=== PATIENT | male | born 1935 | race Caucasian/White ===

== ENCOUNTER 2017-06-16 19:09 | Emergency (ER) | payer MEDICARE | END 2017-06-16 21:15 | disposition home or self-care (01) | LOC: SCSER 19:09 | DX: K59.00 Constipation, unspecified (principal); E11.9 Type 2 diabetes mellitus without complications; I10 Essential (primary) hypertension | CPT/HCPCS: 99283 ==

== ENCOUNTER 2018-08-05 05:15 | Emergency (ER) | payer MEDICARE, OTHER ==
[2018-08-05] MEDS ORDERED: Acetaminophen/Codeine 30-300mg Tablet ONE (05:55)
== END 2018-08-05 06:03 | disposition home or self-care (01) ==
LOC: SCSER 05:15
DX: R10.32 Left lower quadrant pain (principal); I10 Essential (primary) hypertension; E11.9 Type 2 diabetes mellitus without complications; Z79.899 Other long term (current) drug therapy; Z79.84 Long term (current) use of oral hypoglycemic drugs
CPT/HCPCS: 99283

== ENCOUNTER 2018-08-18 11:31 | Outpatient (CLI) | payer MEDICARE ==
[2018-08-18 13:29] LABS: #Basophils 0.1 thou/uL (0.0-0.2); #Eosinphils 2.6 thou/uL (0.0-0.7); #Lymphocytes 2.9 thou/uL (1.20-3.40); #Monocytes 0.7 thou/uL (0.11-0.59); #Neutrophils 4.5 thou/uL (1.40-6.50); %Lymphocytes 26.9 % (21.0-51.0); %Monocytes 6.6 % (0.0-10.0); %Neutrophils 41.6 % (42.0-75.0); Mean Corpuscular Hemoglobin 30.5 pg (27.0-31.0); Mean Corpuscular Volume 92.3 fL (78.0-98.0); Mean Platelet Volume 8.7 fL (7.4-10.4); Platelet Count 251 thou/uL (130-400); RBC Distribution Width 12.6 % (11.5-14.5); Red Blood Cell (RBC) Count 4.92 mill/uL (4.70-6.10); White Blood Cell (WBC) Count 10.7 thou/uL (4.8-10.8)
[2018-08-18 14:07] LABS: ALT (SGPT) 33 U/L (8-55); AST (SGOT) 21 U/L (5-34); Albumin 4.1 g/dL (3.4-4.8); Alkaline Phosphatase 59 U/L (40-150); Anion Gap 14 mmol/L (10-20); BUN (Urea Nitrogen) 25 mg/dL (8.4-25.7); Bilirubin, Total 0.4 mg/dL (0.2-1.2); Calc. Creatinine Clearance 0 mL/min (70-130); Calcium 9.6 mg/dL (7.8-10.44); Carbon Dioxide 27 mmol/L (23-31); Chloride 103 mmol/L (98-107); Estimated GFR-MDRD 54; Glucose 121 mg/dL (83-110); Potassium 4.2 mmol/L (3.5-5.1); Protein, Total 7.1 g/dL (5.8-8.1); Sodium 140 mmol/L (136-145)
--- NOTE | 2018-08-18 16:59 | EKG ---
Test Reason : Blood Pressure : / mmHG Vent. Rate : 065 BPM Atrial Rate : 065 BPM P-R Int : 190 ms QRS Dur : 104 ms QT Int : 430 ms P-R-T Axes : 043 -33 011 degrees QTc Int : 447 ms Normal sinus rhythm Left axis deviation Voltage criteria for left ventricular hypertrophy Abnormal ECG Confirmed by DR. Fariha LUNA ([id number]) on 08/18/2018 4:58:50 PM Referred By: BREEZY Confirmed By:DR. Fariha LUNA
== END 2018-08-18 11:32 | disposition home or self-care (01) ==
LOC: LABBT 11:31
PROVIDERS: ATTEND Surgery
DX: Z01.818 Encounter for other preprocedural examination (principal); K40.90 Unilateral inguinal hernia, without obstruction or gangrene, not specified as recurrent
CPT/HCPCS: 80053; 85025; 93005; 93010

== ENCOUNTER → 2018-08-21 | Day surgery (SDC) | payer MEDICARE ==
[2018-08-18 12:48] VITALS: BMI 29.6
[~2018-08-21] MED LIST: Bupivacaine HCl 0.5%/Epinephrine 1:200,000/PF 30 ml Vial ONE; CEFAZOLIN 2 GM/50 ML BAG ONE; Dexamethasone 20 MG/5 ML VIAL ONE; Fentanyl 250 MCG/5 ML VIAL ONE; Glycopyrrolate 0.2 MG/ML 5 ML SYRINGE ONE; HYDROcodone/Acetaminophen 5/325 mg Tablet ONE; Lidocaine 1% PF 5 ML VIAL ONE; Lidocaine 2% 11 ML SYR ONE; Ondansetron PF 4 MG/2 ML Vial ONE; PROPOFOL 200 MG/20 ML VIAL ONE
--- NOTE | 2018-08-21 12:22 | OP ---
DATE OF PROCEDURE: 08/21/2018 PREOPERATIVE DIAGNOSIS: Left inguinal hernia. PROCEDURES PERFORMED: Left inguinal hernia repair with mesh. INDICATIONS: An 83-year-old male with a large painful groin bulge, found to have a hernia. FINDINGS: He had a large indirect left inguinal hernia. DESCRIPTION OF PROCEDURE: After informed consent was obtained, the patient was taken to the operating room, given general mask anesthesia and placed in supine position. His groin was prepped and draped in usual fashion. Local anesthesia was infiltrated subcutaneously and deep. Transverse inguinal incision was performed. Subcu divided sharply. The fascia external oblique was incised in direction of its fibers through the external ring. Spermatic cord was isolated with a Sherwin drain. Very large spermatic cord due to the hernia. I was able to get it reduced and then the hernia sac from surrounding cord structures down to the internal ring. This was reduced. Reduction was maintained utilizing a PHS hernia system. The posterior layer placed in the preperitoneal space, anterior was laid out, sutured to the pubic tubercle medially, tucked under the external oblique fascia laterally. A notch was cut out for the spermatic cord. Hemostasis assured. The cord placed anatomically. External oblique fascia closed over the cord with a running 3-0 Vicryl. Leana was closed with interrupted 3-0 Vicryl and the skin was closed with a running subcuticular 4-0 Rapide. Steri-Strips applied. Sterile bandage applied. The patient tolerated the procedure well, transferred to Recovery in good condition. Sponge and needle count verified correct x2. Job ID: [id number]
== END ==
LOC: SDC 07:11
PROVIDERS: ATTEND Surgery
PROC: 0YU60JZ Supplement Left Inguinal Region with Synthetic Substitute, Open Approach (ICD-10-PCS; principal; 2018-08-21)
DX: K40.90 Unilateral inguinal hernia, without obstruction or gangrene, not specified as recurrent (principal); M19.90 Unspecified osteoarthritis, unspecified site; E11.9 Type 2 diabetes mellitus without complications; I10 Essential (primary) hypertension; Z87.891 Personal history of nicotine dependence; Z79.84 Long term (current) use of oral hypoglycemic drugs; Z79.899 Other long term (current) drug therapy
CPT/HCPCS: 49505; C1781; J0670; J1100; J2001; J2405; J2704; J3010

== ENCOUNTER 2019-02-26 15:29 | Emergency (ER) | payer MEDICARE ==
[2019-02-26] MEDS ORDERED: Adacel (T-DAP) 0.5 ML SYRINGE ONE (16:15)
[2019-02-26] MEDS ORDERED: Bupivacaine 0.5% 10 ML VIAL ONE (16:15)
[2019-02-26] MEDS ORDERED: Lidocaine 1% 20 ML MDV ONE (16:15)
--- NOTE | 2019-02-26 16:19 | RAD ---
RIGHT HAND THREE VIEW: 02/26/19 HISTORY: Injury. Mechanical fall. COMPARISON: None. FINDINGS: Ring finger proximal interphalangeal joint there is dorsal displacement with overriding approximately 8 mm. Mild interphalangeal joint space narrowing of the other digits. Moderate third finger, middle finger, metacarpophalangeal join space narrowing. Radiocarpal joint is normal. IMPRESSION: Dorsal displacement ring finger proximal interphalangeal with 8 mm overriding. POS: CET
[2019-02-26] MEDS ORDERED: Bacitracin 1 PK ONE (18:06)
--- NOTE | 2019-02-26 18:52 | RAD ---
Radiograph right fourth digit 3 views: DATE: 02/26/2019 Time: 6:25 PM Streaky: Status post reduction of dislocation of right fourth digit in 84-year-old male COMPARISON: Right hand radiograph of 02/26/2019 at 4:00 PM FINDINGS: The fourth PIP is now located. There is a volar splint. No fracture is identified. IMPRESSION: Successful reduction of the acute, traumatic dislocation of fourth proximal interphalangeal joint of right hand.
== END 2019-02-26 19:00 | disposition home or self-care (01) ==
LOC: SCSER 15:29
DX: S63.284A Dislocation of proximal interphalangeal joint of right ring finger, initial encounter (principal); S61.212A Laceration without foreign body of right middle finger without damage to nail, initial encounter; I10 Essential (primary) hypertension; E11.9 Type 2 diabetes mellitus without complications; Z79.84 Long term (current) use of oral hypoglycemic drugs; Z79.899 Other long term (current) drug therapy; W19.XXXA Unspecified fall, initial encounter
CPT/HCPCS: 12002; 26770; 90471; 90715; J2001; J3490

== ENCOUNTER 2019-06-13 09:58 | Inpatient (IN) | payer MEDICARE ==
[2019-06-13 10:57] LABS: #Basophils 0.1 thou/uL (0.0-0.2); #Eosinphils 2.3 thou/uL (0.0-0.7); #Lymphocytes 4.8 thou/uL (1.20-3.40); #Monocytes 0.8 thou/uL (0.11-0.59); #Neutrophils 7.9 thou/uL (1.40-6.50); %Basophils 0.5 % (0.0-1.0); %Eosinophils 14.3 % (0.0-10.0); %Lymphocytes 30.3 % (21.0-51.0); %Monocytes 5.3 % (0.0-10.0); %Neutrophils 49.7 % (42.0-75.0); Hemoglobin 15.2 g/dL (14.0-18.0); Mean Corpuscular HGB CONC 33.8 g/dL (32.0-36.0); Mean Corpuscular Hemoglobin 30.1 pg (27.0-31.0); Platelet Count 304 thou/uL (130-400); RBC Distribution Width 12.2 % (11.5-14.5); Red Blood Cell (RBC) Count 5.05 mill/uL (4.70-6.10); White Blood Cell (WBC) Count 15.9 thou/uL (4.8-10.8)
--- NOTE | 2019-06-13 10:58 | CT ---
CT head without contrast: Multiple axial tomograms obtained through the head without IV enhancement. INDICATIONS: Near syncope. COMPARISON: None FINDINGS: Ventricles have normal size and position. Mild to moderate chronic ischemic white matter change. No evidence of intracranial mass, hemorrhage, edema, or infarct. Visualized sinuses and mastoids appear clear. Bony calvarium appears unremarkable. IMPRESSION: No acute finding
[2019-06-13] MEDS ORDERED: Ondansetron PF 4 MG/2 ML Vial ONE ×2 (11:04→14:06)
[2019-06-13 11:10] LABS: Bilirubin Negative (Negative); Blood, Urine Trace (Negative); Clarity Clear (Clear); Glucose, Urine (Dipstick) 300 mg/dL (Negative); Leukocyte Negative Leu/uL (Negative); Nitrite Negative (Negative); Protein, Urine (Dipstick) 300 mg/dL (Neg-Trace); Squamous Epithelial None Seen HPF (0-3); Urobilinogen Normal mg/dL (Less than 2)
--- NOTE | 2019-06-13 11:10 | RAD ---
Portable chest: HISTORY: Weak. Lightheaded. COMPARISON: none FINDINGS: Lung philippe are clear. Heart and mediastinum appear unremarkable. Vascularity is normal. Visualized osseous structures unremarkable. IMPRESSION: No acute finding
[2019-06-13 11:20] LABS: ALT (SGPT) 42 U/L (8-55); AST (SGOT) 29 U/L (5-34); Albumin 4.4 g/dL (3.4-4.8); Alkaline Phosphatase 69 U/L (40-110); Anion Gap 15 mmol/L (10-20); BUN (Urea Nitrogen) 26 mg/dL (8.4-25.7); Bilirubin, Total 0.4 mg/dL (0.2-1.2); Calc. Creatinine Clearance 0 mL/min (70-130); Calcium 9.8 mg/dL (7.8-10.44); Carbon Dioxide 27 mmol/L (23-31); Chloride 98 mmol/L (98-107); Estimated GFR-MDRD 45; Globulin 3.7 g/dL (2.4-3.5); Glucose 279 mg/dL (83-110); Potassium 3.4 mmol/L (3.5-5.1); Protein, Total 8.1 g/dL (5.8-8.1); Sodium 137 mmol/L (136-145)
[2019-06-13 11:23] LABS: Amphetamine Not Detected (NotDetected); Barbiturates Screen Not Detected (NotDetected); Benzodiazepine Screen Not Detected (NotDetected); Cocaine Metabolite Screen Not Detected (NotDetected); Medtox Control Line Valid? VALID (VALID); Medtox Reader # READER 1; Methadone Not Detected (NotDetected); Methamphetamine Not Detected (NotDetected); Opiate Screen Not Detected (NotDetected); Oxycodone Screen Not Detected (NotDetected); Phencyclidine (PCP) Not Detected (NotDetected); THC/Cannabinoid Screen Not Detected (NotDetected); Tricyclic Screen Not Detected (NotDetected)
[2019-06-13 11:26] LABS: Bacteria/HPF None Seen HPF (None Seen)
[2019-06-13] MEDS ORDERED: Meclizine HCl 25 MG TAB PO PRN (12:44)
[2019-06-13] MEDS ORDERED: HYDROcodone/Acetaminophen 7.5/325 mg Tablet PO PRN (12:45)
[2019-06-13] MEDS ORDERED: HYDROcodone/Acetaminophen 5/325 mg Tablet PO PRN (12:45)
[2019-06-13] MEDS ORDERED: Loperamide HCl 2 MG CAP PO PRN (12:45)
[2019-06-13] MEDS ORDERED: Bisacodyl 10 MG SUPP PR PRN (12:45)
[2019-06-13] MEDS ORDERED: Acetaminophen 325 MG TAB PO PRN (12:45)
[2019-06-13] MEDS ORDERED: Calcium Carbonate 500 MG ChewTAB PO PRN (12:45)
[2019-06-13] MEDS ORDERED: Ondansetron ODT 4 MG TAB PO PRN (12:45)
[2019-06-13] MEDS ORDERED: diphenhydrAMINE 25 MG CAP PO PRN (12:48)
[2019-06-13] MEDS ORDERED: Benzonatate 100 MG CAP PO PRN (12:48)
[2019-06-13] MEDS ORDERED: Docusate 100 MG CAP PO PRN (12:48)
[2019-06-13] MEDS ORDERED: Melatonin 3 MG TAB PO PRN (12:48)
[2019-06-13 14:04] LABS: Troponin I 0.017 ng/mL (< 0.028)
[2019-06-13] MEDS ORDERED: Nitroglycerin 0.4 MG TAB (25 Tab Bottle) SL PRN (14:22)
--- NOTE | 2019-06-13 14:26 | PDOC.HHP ---
Hospitalist HPI - History of Present Illness Dizziness, palpitations, diaphrosesis History of Present Illness: Very pleasant 84-year-old gentleman with past medical history of diabetes, hypertension, hyperlipidemia, GERD, osteoarthritis and gallstones presents with acute onset of dizziness, palpitations, diaphoresis associated with nausea and vomiting. 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 Patient states that he was at [employer] this morning when all of a sudden he started feeling dizzy, having palpitations, and became very hot and sweaty. Patient did have an episode of vomiting at the [employer]. Patient her arrived to the emergency department and has several more episodes of vomiting. Patient denies ethan black or blood in his vomit. Patient denies abdominal pain. Patient denies syncope. Patient denies chest pain. Patient denies fall, trauma, or loss of consciousness. No other sick type symptoms, patient denies fever, chills, shortness of breath, diarrhea , or other symptoms. Patient does not have a history of atrial fibrillation, found to be in sinus rhythm on arrival. Patient found to have acute kidney injury and dehydration on labs. Patient with elevation in WBC count which may be a stress reaction to profound vomiting. Patient with urine analysis that does not demonstrate any acute infection. Patient with chest x-ray that is not demonstrate any acute pneumonia are focal cardiac process. Patient admitted to medical unit telemetry for further evaluation. Hospitalist ROS - Review of Systems All other systems reviewed; all pertinent +/- noted in HPI/Subj Hospitalist History - Past Medical History Source: patient, family Cardiac: reports: HTN, Hyperlipidemia. denies: CAD, CHF Pulmonary: reports: high cholesterol, hypertension. 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 Gastrointestinal: reports: GERD Hepatobiliary: reports: Cholelithiasis Musculoskeletal: reports: Osteoarthritis Infectious Disease: denies: HIV Endocrine: reports: Diabetes - Past Surgical History Past Surgical History: reports: Hernia Repair, Total Knee Replacement - Family History Family History: reports: hypertension - Social History Smoking Status: Never smoker Alcohol: reports: None Drugs: reports: none Living Situation: With Family Domestic Violence: Negative Activity level: independent ambulation - Exam General Appearance: NAD, awake alert Eye: PERRL, anicteric sclera ENT: no oropharyngeal lesions, dry oral mucosa Neck: supple, symmetric, no lymphadenopathy Heart: RRR, no murmur, no gallops, no rubs Respiratory: CTAB, no wheezes, no rales, no ronchi, normal chest expansion, no tachypnea Gastrointestinal: soft, non-tender, non-distended, no guarding, no rigidity Extremities: no clubbing, no edema Skin: no lesions, no rashes Neurological: cranial nerve grossly intact, normal sensation to touch, no focal deficits Musculoskeletal: no muscle wasting, generalized weakness Psychiatric: normal affect, normal behavior, A&O x 3 Hospitalist Results - Labs Result Diagrams: 06/13/19 10:43 06/13/19 10:43 Lab results: WBC 15.9 thou/uL (4.8-10.8) H 06/13/19 10:43 Hgb 15.2 g/dL (14.0-18.0) 06/13/19 10:43 Hct 44.9 % (42.0-52.0) 06/13/19 10:43 MCV 89.0 fL (78.0-98.0) 06/13/19 10:43 Plt Count 304 thou/uL (130-400) 06/13/19 10:43 Neutrophils % 49.7 % (42.0-75.0) 06/13/19 10:43 Sodium 137 mmol/L (136-145) 06/13/19 10:43 Potassium 3.4 mmol/L (3.5-5.1) L 06/13/19 10:43 Chloride 98 mmol/L (98-107) 06/13/19 10:43 Carbon Dioxide 27 mmol/L (23-31) 06/13/19 10:43 BUN 26 mg/dL (8.4-25.7) H 06/13/19 10:43 Creatinine 1.49 mg/dL (0.7-1.3) H 06/13/19 10:43 Glucose 279 mg/dL (83-110) H 06/13/19 10:43 Calcium 9.8 mg/dL (7.8-10.44) 06/13/19 10:43 Total Bilirubin 0.4 mg/dL (0.2-1.2) 06/13/19 10:43 AST 29 U/L (5-34) 06/13/19 10:43 ALT 42 U/L (8-55) 06/13/19 10:43 Alkaline Phosphatase 69 U/L (40-110) 06/13/19 10:43 Troponin I 0.017 ng/mL (< 0.028) 06/13/19 13:16 Serum Total Protein 8.1 g/dL (5.8-8.1) 06/13/19 10:43 Albumin 4.4 g/dL (3.4-4.8) 06/13/19 10:43 Urine Ketones Negative mg/dL (Negative) 06/13/19 10:50 Urine Blood Trace (Negative) A 06/13/19 10:50 Urine Nitrite Negative (Negative) 06/13/19 10:50 Ur Leukocyte Esterase Negative Katherine/uL (Negative) 06/13/19 10:50 Urine RBC 4-6 HPF (0-3) A 06/13/19 10:50 Urine WBC 4-6 HPF (0-3) A 06/13/19 10:50 Ur Squamous Epith Cells None Seen HPF (0-3) 06/13/19 10:50 Urine Bacteria None Seen HPF (None Seen) 06/13/19 10:50 - Radiology Interpretation Chest x-ray Status: image reviewed by me CT scan - head Status: image reviewed by il Hospitalist H&P A/P - Problem (1) Dizziness Code(s): R42 - DIZZINESS AND GIDDINESS Status: Acute (2) Palpitations Code(s): R00.2 - PALPITATIONS Status: Acute (3) Nausea & vomiting Code(s): R11.2 - NAUSEA WITH VOMITING, UNSPECIFIED Status: Acute (4) KEVIN (acute kidney injury) Code(s): N17.9 - ACUTE KIDNEY FAILURE, UNSPECIFIED Status: Acute (5) Leukocytosis Code(s): D72.829 - ELEVATED WHITE BLOOD CELL COUNT, UNSPECIFIED Status: Acute (6) DM (diabetes mellitus) Code(s): E11.9 - TYPE 2 DIABETES MELLITUS WITHOUT COMPLICATIONS Status: Chronic (7) HTN (hypertension) Code(s): I10 - ESSENTIAL (PRIMARY) HYPERTENSION Status: Chronic (8) HLD (hyperlipidemia) Code(s): E78.5 - HYPERLIPIDEMIA, UNSPECIFIED Status: Chronic (9) Osteoarthritis Code(s): M19.90 - UNSPECIFIED OSTEOARTHRITIS, UNSPECIFIED SITE Status: Chronic (10) Gallstone Code(s): K80.20 - CALCULUS OF GALLBLADDER W/O CHOLECYSTITIS W/O OBSTRUCTION Status: Chronic - Plan Plan: Plan: admit to medical unit with telemetry continuous telemetry to monitor for arrhythmia nuclear medicine stress test to rule out reversible ischemia echocardiogram oxygen, nitrates, aspirin, morphine if needed Troponin normal Sinus rhythm on admission last stress test was nearly 1 year ago, reported normal per patient symptomatic therapy for nausea and vomiting ultrasound of the abdomen to rule out cholecystitis, hx of gallstones per patient ultrasound of the abdomen to evaluate for obstruction as cause of acute kidney injury IV fluids, gentle insulin sliding-scale for glucose coverage for hyperglycemia hold oral diabetes medications blood pressure control ultrasound lower extremity rule out DVT, right lower extremity swelling DVT prophylaxis SCDs
[2019-06-13] MEDS ORDERED: Dextrose 5% in Water 1,000 ML IV PRN (14:49)
[2019-06-13] MEDS ORDERED: HumaLOG 300 UNITS/3 ML VIAL SC PRN ×2 (14:49)
[2019-06-13] MEDS ORDERED: Dextrose 50% Abboject 50 ML SYRINGE SLOW IVP PRN (14:49)
[2019-06-13] MEDS ORDERED: Morphine 2 MG/ML SYRINGE SLOW IVP PRN ×2 (16:00→16:01)
[2019-06-13 16:06] VITALS: BMI 28.8
[2019-06-13] MEDS: Potassium Chloride 40 MEQ in Sodium Chloride 0.45% 1,000 ML IV SCH (16:52)
[2019-06-13 17:36] LABS: Troponin I Less than 0.010 ng/mL (< 0.028)
--- NOTE | 2019-06-13 17:56 | ULT ---
RIGHT LOWER EXTREMITY VENOUS DUPLEX EXAM: Indications: Right lower extremity pain and edema. FINDINGS: Veins of the right lower extremity were evaluated with ultrasound, color doppler, spectral analysis a nd compression. Deep veins show normal blood flow and compression. No evidence of DVT. 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 IMPRESSION: 1. No evidence of right lower extremity DVT. 2. 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 POS: AGW
[2019-06-13] MEDS: Lisinopril 20 MG TAB PO SCH (20:04)
[2019-06-13] MEDS ORDERED: Atorvastatin Calcium 10 MG TAB PO SCH (21:00)
[2019-06-13] MEDS: Labetalol HCl 100 MG/20 ML VIAL SLOW IVP PRN (23:37)
[2019-06-14 04:49] LABS: #Eosinphils 0.1 thou/uL (0.0-0.7); #Lymphocytes 2.1 thou/uL (1.20-3.40); #Monocytes 0.9 thou/uL (0.11-0.59); #Neutrophils 9.1 thou/uL (1.40-6.50); %Basophils 0.3 % (0.0-1.0); %Eosinophils 1.1 % (0.0-10.0); %Lymphocytes 17.1 % (21.0-51.0); %Monocytes 7.1 % (0.0-10.0); %Neutrophils 74.3 % (42.0-75.0); Hemoglobin 13.9 g/dL (14.0-18.0); Mean Corpuscular HGB CONC 33.4 g/dL (32.0-36.0); Mean Corpuscular Hemoglobin 29.7 pg (27.0-31.0); Mean Platelet Volume 8.1 fL (7.4-10.4); Platelet Count 268 thou/uL (130-400); RBC Distribution Width 12.1 % (11.5-14.5); Red Blood Cell (RBC) Count 4.67 mill/uL (4.70-6.10); White Blood Cell (WBC) Count 12.2 thou/uL (4.8-10.8)
[2019-06-14 05:12] LABS: Anion Gap 11 mmol/L (10-20); BUN (Urea Nitrogen) 27 mg/dL (8.4-25.7); Calc. Creatinine Clearance 44 mL/min (70-130); Calcium 8.8 mg/dL (7.8-10.44); Carbon Dioxide 29 mmol/L (23-31); Chloride 100 mmol/L (98-107); Estimated GFR-MDRD 46; Glucose 156 mg/dL (83-110); Potassium 4.7 mmol/L (3.5-5.1); Sodium 135 mmol/L (136-145)
[2019-06-14] MEDS: Levothyroxine 150 MCG TAB PO SCH (05:44)
[2019-06-14] MEDS: Potassium Chloride 40 MEQ in Sodium Chloride 0.45% 1,000 ML IV SCH (05:44)
--- NOTE | 2019-06-14 07:44 | ULT ---
Sonogram abdomen complete HISTORY: Abdominal pain. FINDINGS: Gallbladder is decompressed around multiple shadowing stones. No pericholecystic fluid. Pat ient was reportedly not tender over the gallbladder fossa at the time the exam. Common duct is 0.6 cm. Liver unremarkable without focal mass or intrahepatic biliary dilatation. No free fluid. The spleen, kidneys, and visualized portions of abdominal aorta, IVC, and pancreas are within normal limits. IMPRESSION: Cholelithiasis. No evidence of acute biliary obstruction.
[2019-06-14] MEDS ORDERED: hydrALAZINE 20 MG/ML VIAL SLOW IVP SCH ×2 (07:45→09:00)
[2019-06-14] MEDS: Dutasteride 0.5 MG CAP PO SCH (07:55)
[2019-06-14] MEDS: Ondansetron PF 4 MG/2 ML Vial IVP PRN ×2 (09:07→15:39)
[2019-06-14] MEDS ORDERED: Lorazepam 2 MG/ML VIAL SLOW IVP PRN (09:25)
--- NOTE | 2019-06-14 09:28 | PDOC.HOSPP ---
- Subjective Encounter Date: 06/14/19 Encounter Time: 09:26 Subjective: Persistent vertigo when trying to get up. Has had some vomiting as well. BP has been very high. Not normal for him. Did not respond to Hydralazine 10mg IV. - Objective Vital Signs & Weight: Vital Signs (12 hours) Temp Pulse Resp BP BP Pulse Ox 06/14/19 09:07 68 190/91 H 06/14/19 08:43 68 190/91 H 06/14/19 07:52 65 191/88 H 06/14/19 07:40 97.9 F 65 16 191/88 H 94 L 06/14/19 03:52 98.6 F 65 20 147/65 H 99 06/13/19 23:50 175/80 H 06/13/19 23:37 68 181/86 H 06/13/19 23:14 99.5 F 70 15 188/91 H 96 Weight Weight 189 lb 8 oz I&O: 06/13/19 06/14/19 06/15/19 06:59 06:59 06:59 Intake Total 1040 Output Total 750 Balance 290 Result Diagrams: 06/14/19 04:30 06/14/19 04:30 Additional Labs: Accuchecks 06/13/19 20:05 POC Glucose 201 H Hospitalist ROS - Medication Medications: Active Medications Generic Name Dose Route Start Last Admin Trade Name Freq PRN Reason Stop Dose Admin Atorvastatin Calcium 10 mg 06/13/19 21:00 06/13/19 20:04 Lipitor PO 10 mg HS MARIE Administration Dutasteride 0.5 mg 06/14/19 09:00 06/14/19 07:55 Avodart PO 0.5 mg QAM MARIE Administration Hydralazine HCl 10 mg 06/14/19 07:45 06/14/19 07:52 Apresoline SLOW IVP 06/14/19 10:00 10 mg NOW MARIE Administration Hydralazine HCl 10 mg 06/14/19 09:00 06/14/19 09:07 Apresoline SLOW IVP 06/14/19 12:00 10 mg NOW MARIE Administration Potassium Chloride 40 meq/ 1,020 mls @ 70 mls/hr 06/13/19 15:00 06/14/19 05: 44 Sodium Chloride IV 1,020 mls .[id number] MARIE Administration Labetalol HCl 10 mg 06/13/19 12:48 06/13/19 23:37 Normodyne SLOW IVP 10 mg Q4H PRN Administration SBP Greater Than 180 Levothyroxine Sodium 150 mcg 06/14/19 06:00 06/14/19 05:44 Synthroid PO 150 mcg 0600 MARIE Administration Lisinopril 20 mg 06/13/19 21:00 06/13/19 20:04 Zestril PO 20 mg HS MARIE Administration Meclizine HCl 25 mg 06/13/19 12:44 06/14/19 08:02 Antivert PO 25 mg DAILYPRN PRN Administration Dizziness Ondansetron HCl 4 mg 06/13/19 12:45 06/14/19 06:03 Zofran Odt PO 4 mg Q6H PRN Administration Nausea/Vomiting Ondansetron HCl 4 mg 06/13/19 12:45 06/14/19 09:07 Zofran IVP 4 mg Q6H PRN Administration Nausea/Vomiting Pantoprazole Sodium 40 mg 06/14/19 09:00 06/14/19 07:55 Protonix PO 40 mg DAILY MARIE Administration Sodium Chloride 10 ml 06/14/19 09:00 06/14/19 07:56 Flush - Normal Saline IVF Not Given Q12HR MARIE - Exam General Appearance: NAD Heart: RRR, no murmur, no gallops, no rubs, normal peripheral pulses Respiratory: CTAB, no wheezes, no rales, no ronchi, normal chest expansion, no tachypnea, normal percussion Gastrointestinal: soft, non-tender, non-distended Extremities: no edema Psychiatric: normal affect, normal behavior, A&O x 3 Hosp A/P (1) Dizziness Code(s): R42 - DIZZINESS AND GIDDINESS Status: Acute (2) Nausea & vomiting Code(s): R11.2 - NAUSEA WITH VOMITING, UNSPECIFIED Status: Acute (3) CKD (chronic kidney disease), stage III Code(s): N18.3 - CHRONIC KIDNEY DISEASE, STAGE 3 (MODERATE) Status: Acute (4) KEVIN (acute kidney injury) Code(s): N17.9 - ACUTE KIDNEY FAILURE, UNSPECIFIED Status: Acute (5) Leukocytosis Code(s): D72.829 - ELEVATED WHITE BLOOD CELL COUNT, UNSPECIFIED Status: Acute (6) Palpitations Code(s): R00.2 - PALPITATIONS Status: Acute (7) DM (diabetes mellitus) Code(s): E11.9 - TYPE 2 DIABETES MELLITUS WITHOUT COMPLICATIONS Status: Chronic (8) Gallstone Code(s): K80.20 - CALCULUS OF GALLBLADDER W/O CHOLECYSTITIS W/O OBSTRUCTION Status: Chronic (9) HTN (hypertension) Code(s): I10 - ESSENTIAL (PRIMARY) HYPERTENSION Status: Chronic (10) Osteoarthritis Code(s): M19.90 - UNSPECIFIED OSTEOARTHRITIS, UNSPECIFIED SITE Status: Chronic - Plan Trops negative. Tele normal. Vertigo, n/v seems to be positional. BP very high and recalcitrant. Cancel stress test given his n/v and htn. Would not likely tolerate stress test. MRI brain to rule out posterior circulation CVA. Lorazepam for symptom control. Continue IV Hydralazine in modest doses until CVA ruled out. Renal function mildly lower than baseline, but appears to have CKD III with last GFR at 56. Leukocytosis improving.
[2019-06-14] MEDS: Labetalol HCl 100 MG/20 ML VIAL SLOW IVP PRN (15:39)
--- NOTE | 2019-06-14 17:00 | MRI ---
MRI BRAIN WITHOUT CONTRAST: HISTORY: Vertigo, hypertension CORRELATION: CT scan from 06/13/2019. FINDINGS: A small focal area of restricted diffusion is seen in the medial aspect of the left cerebellar hemisp here, close to the inferior cerebellar peduncle. There are multiple foci of T2 prolongation in the periventricular white matter, consistent with chronic small vessel ischemic disease. The ventricular size is appropriate and the basilar cisterns are patent. No evidence of acute transcortical infarct, hemorrhage, midline shift or abnormal extra-axial fluid collections is seen. There is mucosa l disease in the paranasal sinuses. 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
[2019-06-14] MEDS ORDERED: Aspirin 325 mg Enteric Coated Tablet PO SCH (17:15)
[2019-06-14] MEDS ORDERED: hydrALAZINE 20 MG/ML VIAL SLOW IVP PRN (17:17)
[2019-06-14] MEDS ORDERED: Aspirin 325 MG TAB ONE (17:28)
[2019-06-14] MEDS: Lisinopril 20 MG TAB PO SCH (21:20)
[2019-06-14] MEDS: Atorvastatin Calcium 10 MG TAB PO SCH (21:20)
--- NOTE | 2019-06-14 21:25 | ULT ---
CAROTID ULTRASOUND: History: CVA. Comparison: None. Technique: Grayscale, color flow, doppler imaging and spectral waveform analysis performed of the car otid and vertebral arteries. FINDINGS: Right carotid: Minimal atherosclerotic plaque in the carotid bifurcation. Peak systolic velocity of the common carotid artery is 84.2 cm/sec. Peak systolic velocity of the int ernal carotid artery is 72.0 cm/sec. Systolic ICA/CCA ratio is 0.86. Left carotid: Minimal atherosclerotic disease in the left carotid bifurcation. Peak systolic velocity of the common carotid artery is 104.7 cm/sec. Peak systolic velocity of the internal carotid artery is 85 cm/sec. Systolic ICA/CCA ratio is 0.81. There is antegrade flow in both vertebral arteries. IMPRESSION: No sonographic evidence of hemodynamically significant stenosis. POS: JASSON
[2019-06-15] MEDS: Levothyroxine 150 MCG TAB PO SCH (07:37)
[2019-06-15] MEDS: Aspirin 81 mg Enteric Coated Tablet PO SCH (08:41)
[2019-06-15] MEDS: Dutasteride 0.5 MG CAP PO SCH (08:41)
[2019-06-15 10:42] LABS: Cardiac Risk 4.4 (Less than 4.5)
[2019-06-15] MEDS ORDERED: metFORMIN 500 MG TAB PO SCH (11:00)
[2019-06-15] MEDS ORDERED: Amlodipine 5 MG TAB PO SCH (11:15)
[2019-06-15] MEDS: metFORMIN 500 MG TAB PO SCH (16:10)
--- NOTE | 2019-06-15 16:44 | PDOC.HOSPP ---
- Subjective Subjective: Doing ok. Still has some balance and gait issues. No numbness or weakness. He has talked to his son who is a PM&R physician. He wants to pursue rehab. - Objective Vital Signs & Weight: Vital Signs (12 hours) Temp Pulse Resp BP BP Pulse Ox 06/15/19 15:17 99.0 F 73 20 156/78 H 95 06/15/19 11:45 74 190/68 H 06/15/19 11:38 97.8 F 74 20 215/99 H 95 06/15/19 08:00 93 L 06/15/19 07:23 97.7 F 65 20 176/86 H 93 L Weight Admit Weight 189 lb 8 oz Weight 189 lb 8 oz I&O: 06/14/19 06/15/19 06/16/19 06:59 06:59 06:59 Intake Total 1040 120 Output Total 750 Balance 290 120 Result Diagrams: 06/14/19 04:30 06/14/19 04:30 Additional Labs: Accuchecks 06/15/19 06/15/19 06/14/19 10:36 06:03 21:31 POC Glucose 247 H 148 H 170 H Hospitalist ROS - Medication Medications: Active Medications Generic Name Dose Route Start Last Admin Trade Name Freq PRN Reason Stop Dose Admin Aspirin 81 mg 06/15/19 09:00 06/15/19 08:41 Ecotrin PO 81 mg DAILY MARIE Administration Atorvastatin Calcium 40 mg 06/14/19 21:00 06/14/19 21:20 Lipitor PO 40 mg HS MARIE Administration Dutasteride 0.5 mg 06/14/19 09:00 06/15/19 08:41 Avodart PO 0.5 mg QAM MARIE Administration Labetalol HCl 10 mg 06/13/19 12:48 06/14/19 15:39 Normodyne SLOW IVP 10 mg Q4H PRN Administration SBP Greater Than 180 Levothyroxine Sodium 150 mcg 06/14/19 06:00 06/15/19 07:37 Synthroid PO 150 mcg 0600 MARIE Administration Lisinopril 20 mg 06/13/19 21:00 06/14/19 21:20 Zestril PO 20 mg HS MARIE Administration Lorazepam 0.5 mg 06/14/19 09:25 06/14/19 09:45 Ativan SLOW IVP 0.5 mg Q6H PRN Administration Dizziness Meclizine HCl 25 mg 06/13/19 12:44 06/14/19 08:02 Antivert PO 25 mg DAILYPRN PRN Administration Dizziness Metformin HCl 1,000 mg 06/15/19 17:00 06/15/19 16:10 Glucophage PO 1,000 mg BID-WM MARIE Administration Ondansetron HCl 4 mg 06/13/19 12:45 06/14/19 06:03 Zofran Odt PO 4 mg Q6H PRN Administration Nausea/Vomiting Ondansetron HCl 4 mg 06/13/19 12:45 06/14/19 15:39 Zofran IVP 4 mg Q6H PRN Administration Nausea/Vomiting Pantoprazole Sodium 40 mg 06/14/19 09:00 06/15/19 08:41 Protonix PO 40 mg DAILY MARIE Administration Sodium Chloride 10 ml 06/14/19 09:00 06/15/19 09:35 Flush - Normal Saline IVF Not Given Q12HR MARIE - Exam General Appearance: NAD, awake alert Neck: supple, symmetric, no JVD, no thyromegaly, no lymphadenopathy, no carotid bruit Heart: RRR, no murmur, no gallops, no rubs, normal peripheral pulses Respiratory: CTAB, no wheezes, no rales, no ronchi, normal chest expansion, no tachypnea, normal percussion Gastrointestinal: soft, non-tender, non-distended, normal bowel sounds, no palpable masses, no hepatomegaly, no splenomegaly, no bruit Extremities: no cyanosis, no clubbing, no edema Skin: normal turgor, no lesions, no rashes Neurological: cranial nerve grossly intact, normal sensation to touch, no weakness Neurological - other findings: Cerebellar exam generally normal other than the gait/balance Musculoskeletal: normal tone, normal strength, no muscle wasting Psychiatric: normal affect, normal behavior, A&O x 3 Hosp A/P (1) Dizziness Code(s): R42 - DIZZINESS AND GIDDINESS Status: Acute (2) Nausea & vomiting Code(s): R11.2 - NAUSEA WITH VOMITING, UNSPECIFIED Status: Acute (3) CKD (chronic kidney disease), stage III Code(s): N18.3 - CHRONIC KIDNEY DISEASE, STAGE 3 (MODERATE) Status: Acute (4) KEVIN (acute kidney injury) Code(s): N17.9 - ACUTE KIDNEY FAILURE, UNSPECIFIED Status: Acute (5) Leukocytosis Code(s): D72.829 - ELEVATED WHITE BLOOD CELL COUNT, UNSPECIFIED Status: Acute (6) Palpitations Code(s): R00.2 - PALPITATIONS Status: Acute (7) DM (diabetes mellitus) Code(s): E11.9 - TYPE 2 DIABETES MELLITUS WITHOUT COMPLICATIONS Status: Chronic (8) Gallstone Code(s): K80.20 - CALCULUS OF GALLBLADDER W/O CHOLECYSTITIS W/O OBSTRUCTION Status: Chronic (9) HTN (hypertension) Code(s): I10 - ESSENTIAL (PRIMARY) HYPERTENSION Status: Chronic (10) Osteoarthritis Code(s): M19.90 - UNSPECIFIED OSTEOARTHRITIS, UNSPECIFIED SITE Status: Chronic - Plan Cerebellar CVA confirmed on MRI. Neuro consult pending. Other workup negative. ASA, higher dose statin. Continue therapy. Trops negative. Tele normal. BP still high. Adding amlodipine. Recheck renal function and leukocytosis in am. Rehab eval.
[2019-06-15] MEDS: Lisinopril 20 MG TAB PO SCH (20:42)
[2019-06-15] MEDS: Atorvastatin Calcium 10 MG TAB PO SCH (20:42)
--- NOTE | 2019-06-16 00:12 | CON ---
DATE OF CONSULTATION: 06/15/2019 CONSULTING PHYSICIAN: Hospitalist Service. IMPRESSION: Acute cerebellar stroke, which appears to be improving with residual ataxia. PLAN: 1. Aspirin has been added. 2. Continue statin. 3. Rehab screening. HISTORY OF PRESENT ILLNESS: Mr. Willis is an 84-year-old man who has a history of diabetes and hypertension. He was in charge when he suddenly became quite dizzy. This produced some nausea and vomiting. He had a low-grade headache. He did not note any lateralized weakness or numbness. He had no slurred speech or difficulty swallowing. His symptoms have eased up. His MRI of the brain revealed an acute left cerebellar stroke. His carotid ultrasound did not show any stenosis. Echocardiogram showed a normal ejection fraction of 55% to 60%. He has been started on aspirin. He was on a statin prior to admission. PAST MEDICAL HISTORY: Diabetes, hypertension, and hyperlipidemia. ALLERGIES: NONE. SOCIAL HISTORY: No tobacco. FAMILY HISTORY: Noncontributory. REVIEW OF SYSTEMS: Ten-system review of systems is otherwise negative. PHYSICAL EXAMINATION: GENERAL: He is a well-nourished elderly man, sitting up in bed, in no acute distress. VITAL SIGNS: Pulse 63, respirations 20. HEENT: Pupils are equal. Conjunctivae are clear. Oropharynx is clear. Cranium, normocephalic and atraumatic. NECK: Supple. EXTREMITIES: No cyanosis or edema. NEUROLOGIC: He is alert and cooperative. His speech is fluent and clear. Cranial nerves are intact. Motor exam shows equal strength. Sensations intact to light touch. His gait was not tested. No abnormal movements were seen. No tremor or dysmetria is present. IMAGING: EKG shows normal sinus rhythm. SUMMARY: Elderly gentleman with a lacunar infarction in the cerebellum. His prognosis for recovery is quite good. He still unsteady and will require some therapy. I agree with your current management. Job ID: [id number]
[2019-06-16 00:27] VITALS: TEMP 98.1
[2019-06-16] MEDS ORDERED: Levothyroxine 150 MCG TAB ONE (05:49)
[2019-06-16] MEDS ORDERED: Amlodipine 5 MG TAB PO SCH (09:00)
[2019-06-16] MEDS: Levothyroxine 150 MCG TAB PO SCH (13:43)
[2019-06-16] MEDS: metFORMIN 500 MG TAB PO SCH ×2 (13:44→16:03)
[2019-06-16] MEDS: Aspirin 81 mg Enteric Coated Tablet PO SCH (13:46)
[2019-06-16] MEDS: Dutasteride 0.5 MG CAP PO SCH (13:46)
[2019-06-16 16:03] VITALS: BP 150/76
== END 2019-06-16 16:13 | DRG 682 ==
LOC: ERS 09:58 → 2SW 12:52 → OBSVTOIN 06-14 17:16 → 2SE 06-14 19:54
PROVIDERS: ADMIT Internal Medicine; ATTEND Internal Medicine
DX: N17.9 Acute kidney failure, unspecified (principal); I63.81 Other cerebral infarction due to occlusion or stenosis of small artery; E86.0 Dehydration; E78.5 Hyperlipidemia, unspecified; K21.9 Gastro-esophageal reflux disease without esophagitis; M19.90 Unspecified osteoarthritis, unspecified site; K80.80 Other cholelithiasis without obstruction; E78.00 Pure hypercholesterolemia, unspecified; R00.2 Palpitations; D72.829 Elevated white blood cell count, unspecified; E11.65 Type 2 diabetes mellitus with hyperglycemia; I12.9 Hypertensive chronic kidney disease with stage 1 through stage 4 chronic kidney disease, or unspecified chronic kidney disease; N18.3 Chronic kidney disease, stage 3 (moderate); E11.22 Type 2 diabetes mellitus with diabetic chronic kidney disease; H54.40 Blindness, one eye, unspecified eye; R27.0 Ataxia, unspecified; Z96.652 Presence of left artificial knee joint; Z85.820 Personal history of malignant melanoma of skin; Z79.84 Long term (current) use of oral hypoglycemic drugs; Z79.890 Hormone replacement therapy; Z79.899 Other long term (current) drug therapy
CPT/HCPCS: 36415; 36416; 70450; 70551; 71045; 80048; 80053; 80061; 80306; 81003; 81015; 84484; 85025; 87040; 87086; 93005; 93306; 93880; 93975; 94760; 96361; 96374; 96376; J0360; J2060; J2405; J3480; J8597; Q0162

== ENCOUNTER 2019-10-21 16:14 | Observation (INO) | payer MEDICARE ==
[~2019-10-21 16:14] MED LIST changes: -Bupivacaine HCl 0.5%/Epinephrine 1:200,000/PF 30 ml Vial ONE; -CEFAZOLIN 2 GM/50 ML BAG ONE; -Dexamethasone 20 MG/5 ML VIAL ONE; -Fentanyl 250 MCG/5 ML VIAL ONE; -Glycopyrrolate 0.2 MG/ML 5 ML SYRINGE ONE; -HYDROcodone/Acetaminophen 5/325 mg Tablet ONE; +Iopamidol-370 76% 500 ML 1 ML ONE; -Lidocaine 1% PF 5 ML VIAL ONE; -Lidocaine 2% 11 ML SYR ONE; -Ondansetron PF 4 MG/2 ML Vial ONE; -PROPOFOL 200 MG/20 ML VIAL ONE
--- NOTE | 2019-10-21 16:38 | CT ---
BRAIN CT WITHOUT IV CONTRAST: 10/21/19 HISTORY: Stroke alert, patient was acting normal and then started talking gibberish, altered mental status. COMPARISON: 06/13/19 FINDINGS: There are some bilateral atrophy and chronic white matter ischemic changes. No focal mass or midline shift. No intra or extra-axial hemorrhage. IMPRESSION: No significant acute intracranial process. Atrophy and chronic white matter ischemic changes. Stable from prior study. Findings were discussed with Dr. Simms in the Emergency Room at 4:22 p.m. Code CR POS: JANESE
[2019-10-21] MEDS ORDERED: EPINEPHrine 1 MG/ML AMP ONE (16:40)
[2019-10-21] MEDS ORDERED: EPINEPHrine 1 MG/10 ML Abboject SYRINGE ONE (16:40)
[2019-10-21 16:49] LABS: #Basophils 0.1 thou/uL (0.0-0.2); #Eosinphils 2.3 thou/uL (0.0-0.7); #Lymphocytes 2.7 thou/uL (1.20-3.40); #Monocytes 0.6 thou/uL (0.11-0.59); #Neutrophils 3.7 thou/uL (1.40-6.50); %Basophils 0.5 % (0.0-1.0); %Eosinophils 24.1 % (0.0-10.0); %Lymphocytes 29.1 % (21.0-51.0); %Monocytes 6.7 % (0.0-10.0); %Neutrophils 39.5 % (42.0-75.0); Mean Corpuscular HGB CONC 34.4 g/dL (32.0-36.0); Mean Platelet Volume 8.1 fL (7.4-10.4); Platelet Count 221 thou/uL (130-400); RBC Distribution Width 12.2 % (11.5-14.5); Red Blood Cell (RBC) Count 4.52 mill/uL (4.70-6.10); White Blood Cell (WBC) Count 9.4 thou/uL (4.8-10.8)
[2019-10-21 16:57] LABS: INR-International Normal Ratio 1.1; PTT 30.2 SEC (22.9-36.1); Prothrombin Time 13.7 SEC (12.0-14.7)
[2019-10-21] MEDS ORDERED: Clopidogrel Bisulfate 75 MG TAB ONE (17:02)
[2019-10-21] MEDS ORDERED: Aspirin Chewable 81 MG TAB ONE (17:02)
[2019-10-21 17:03] LABS: ALT (SGPT) 20 U/L (8-55); AST (SGOT) 15 U/L (5-34); Alkaline Phosphatase 49 U/L (40-110); Anion Gap 12 mmol/L (10-20); BUN (Urea Nitrogen) 28 mg/dL (8.4-25.7); Bilirubin, Total 0.7 mg/dL (0.2-1.2); CK (CPK) 121 U/L (30-200); Calc. Creatinine Clearance 0 mL/min (70-130); Calcium 9.3 mg/dL (7.8-10.44); Carbon Dioxide 27 mmol/L (23-31); Chloride 101 mmol/L (98-107); Estimated GFR-MDRD 41; Glucose 168 mg/dL (83-110); Potassium 4.3 mmol/L (3.5-5.1); Sodium 136 mmol/L (136-145)
--- NOTE | 2019-10-21 17:04 | CT ---
CTA OF THE HEAD AND NECK UTILIZING IV CONTRAST AND 3D REFORMATTED IMAGIN10/21/19 COMPARISON: MRI of the brain dated 06/14/[address] of the brain dated 10/21/19. FINDINGS: CTA OF THE NECK: There is nonspecific mildly enlarged lymph nodes within the mediastinum. There is mild interstitial a nd scattered ground glass opacities which are nonspecific and can be seen with subsegmental volume lo ss. There is fluid and debris within the esophagus that may reflect reflux versus esophagitis. No hemodynamically significant stenosis is evident. There are mild vascular calcifications involving the carotids. There is some mild narrowing involving the proximal aspect of the left vertebral artery . No lymphadenopathy is seen within the neck. The parotid, submandibular, and visualized thyroid gland appear within normal limits. Aerodigestive tract is normal appearing. Scattered degenerative and osteoarthritic change is present. No acute osseous abnormality is evident. CTA OF THE HEAD: No hemodynamically significant stenosis is evident. 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 There is moderate chronic small vessel white matter ischemic change with remote lacunar infarcts invo lving bilateral globus pallidus and right caudate head. There is an enhancing 1 cm mass seen underlying the left anterior frontal lobe on image 214 of series 4 that is likely extra-axial in location and may reflect and underlying meningioma. No additional ar ea of abnormal enhancement is demonstrated. The bilateral lens have been replaced. There is mucus retention cyst within the inferior aspect of th e left maxillary sinus. Small sebaceous cyst is seen within the right frontal scalp. IMPRESSION: 1. No hemodynamically significant stenosis identified. 2. Enhancing extra-axial mass seen involving the left anterior cranial fossa suspicious for meni ngioma. This could be followed up with an MR of the brain with and without contrast to verify this ab normality. 3. Moderate chronic small vessel ischemic change. 4. Mild narrowing involving the proximal aspect of the left vertebral artery. 5. Nonspecific mildly enlarged lymph nodes of the upper mediastinum. 6. Fluid and debris within the esophagus may reflect reflux esophagitis or dysmotility. POS: BH
--- NOTE | 2019-10-21 17:06 | RAD ---
PORTABLE CHEST: 10/21/19 PROVIDED CLINICAL HISTORY: Stroke symptoms. FINDINGS: Comparison 06/13/19. Cardiac and mediastinal silhouette is unchanged in appearance. No focal consolidation, pleural fluid, or pneumothorax apparent. IMPRESSION: No evidence for acute cardiopulmonary process. POS: KUNAL
[2019-10-21 17:31] LABS: Bacteria/HPF None Seen HPF (None Seen); Bilirubin Negative (Negative); Blood, Urine Negative (Negative); Clarity Clear (Clear); Glucose, Urine (Dipstick) Greater than 1000 mg/dL (Negative); Leukocyte Negative Leu/uL (Negative); Nitrite Negative (Negative); Protein, Urine (Dipstick) 50 mg/dL (Neg-Trace); RBC/HPF 0-3 HPF (0-3); Squamous Epithelial None Seen HPF (0-3); Urobilinogen Normal mg/dL (Less than 2); WBC/HPF 0-3 HPF (0-3)
[2019-10-21] MEDS ORDERED: Acetaminophen 325 MG TAB PO PRN (19:34)
--- NOTE | 2019-10-21 20:33 | HP ---
CHIEF COMPLAINT: Altered mental status. HISTORY OF PRESENT ILLNESS: This patient is an 84-year-old male, who was brought in via the emergency department. Apparently while at home, the patient started experiencing some difficulty with slurring of his speech, having some difficulty finding words, possibly some confusion. Currently, I find the patient in the ER room. He is awake and pleasant. He is conversant. He says that he did have some problem with his speech. Denies any other neurologic symptoms or problems. Denies any pain and otherwise, he feels generally well. Denies headache, chest pain, or palpitations. REVIEW OF SYSTEMS: All other systems reviewed. All pertinent positives and negatives noted in the history of present illness. 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 PAST SURGICAL HISTORY: Hernia repair, total knee replacement. FAMILY HISTORY: Notable for hypertension. SOCIAL HISTORY: Nonsmoker, nondrinker, nondrug user. Lives with his and ambulates independently. CURRENT MEDICATIONS: Based primarily on his prior discharge medications, include; 1. Aspirin 81 mg daily. 2. Atorvastatin 40 mg daily. 3. Metformin 1000 mg b.i.d. 4. Levothyroxine 150 mcg daily. 5. Omeprazole 20 mg daily. 6. Lisinopril 20 mg at bedtime. 7. Dutasteride 0.5 mg daily. ALLERGIES: NONE. PHYSICAL EXAMINATION: VITAL SIGNS: Initially BP was 205/103, pulse 84, respirations 17, temperature 97.9. Most recent BP 173/94, pulse 66, respirations 12, temperature 98.7, and O2 saturation 97%. GENERAL APPEARANCE: The patient is awake and alert, pleasant, cooperative. He does have some occasional word-finding difficulties, fairly normal pronunciation, although mild dysarthria. NECK: Supple and symmetric. HEART: Regular rate and rhythm without murmurs, gallops, or rubs. LUNGS: Clear to auscultation bilaterally with good chest wall expansion and air exchange. ABDOMEN: Soft, nontender, and nondistended. Positive bowel sounds. No masses. No organomegaly. EXTREMITIES: No cyanosis, clubbing, or edema. NEUROLOGIC: As above. The patient has some word finding difficulties. Otherwise, peripherally appears to be generally intact, has normal strength, sensation throughout. LABORATORY DATA: White count 9.4, hemoglobin 14.0, platelets 221. INR 1.1. Sodium 136, potassium 4.3, chloride 101, BUN is 28, creatinine 1.62, GFR is 41. LFTs are normal. Glucose 168. Urinalysis shows some glucose. CT brain shows nothing acute. There is atrophy and chronic white matter ischemic changes, stable from prior studies. CT angio, suspicious for meningioma involving the left anterior cranial fossa. Moderate chronic small-vessel ischemic change. Mild narrowing involving the proximal aspect of the left vertebral artery. Some evidence of fluid and debris within the esophagus, potentially representing reflux esophagitis or dysmotility, and some nonspecific mildly enlarged lymph nodes in the upper mediastinum. IMPRESSION AND PLAN: 1. Acute dysarthria with some word-finding difficulties in a patient with a history of a prior cerebrovascular accident. The patient was admitted here 5 months ago with a cerebrovascular accident at that time. He had an MRI of the brain, carotid Dopplers, revealing no evidence of stenosis. Echocardiogram suggestive of some diastolic dysfunction, otherwise normal, and telemetry which was unremarkable. His MRI at that time did show the cerebellar infarct. On this occasion, the patient's symptoms appear to be slightly improved but generally static. He also has elevated blood pressure, both of which concerning for true underlying cerebrovascular accident. We will get an MRI. We will have PT, OT, Speech, and Neurology consult. We will add Plavix to his aspirin regimen. 2. Hypertensive urgency, likely secondary to acute cerebrovascular accident. We will keep him on his usual home medications for now, not going to substantially or aggressively try to control blood pressure. We will continue to monitor that closely. 3. Diabetes mellitus. Continue with usual home regimen, Accu-Cheks. 4. Hypothyroidism. Continue with his usual levothyroxine dose. 5. Hyperlipidemia. Continue with the statin. 6. History of reflux with some evidence of reflux esophagitis. Continue with PPI. Job ID: [id number]
[2019-10-21] MEDS ORDERED: Atorvastatin Calcium 40 MG TAB PO SCH (21:00)
[2019-10-21 21:49] VITALS: BMI 29.9
[2019-10-21] MEDS ORDERED: Labetalol HCl 100 MG/20 ML VIAL SLOW IVP PRN (22:04)
[2019-10-21] MEDS ORDERED: hydrALAZINE 20 MG/ML VIAL SLOW IVP PRN (22:04)
[2019-10-21] MEDS ORDERED: Lisinopril 20 MG TAB PO SCH (23:00)
[2019-10-22] MEDS ORDERED: Levothyroxine 150 MCG TAB PO SCH (06:00)
[2019-10-22] MEDS ORDERED: metFORMIN 500 MG TAB PO SCH (08:00)
[2019-10-22] MEDS ORDERED: Aspirin 81 mg Enteric Coated Tablet PO SCH (09:00)
[2019-10-22] MEDS ORDERED: Lisinopril 20 MG TAB PO SCH ×2 (09:00→21:00)
[2019-10-22] MEDS ORDERED: Clopidogrel Bisulfate 75 MG TAB PO SCH (09:00)
[2019-10-22] MEDS ORDERED: Dutasteride 0.5 MG CAP PO SCH (09:00)
[2019-10-22] MEDS ORDERED: Enoxaparin Sodium 40 MG/0.4 ML SYRINGE SC SCH (09:00)
[2019-10-22] MEDS ORDERED: Amlodipine 5 MG TAB PO SCH (09:00)
--- NOTE | 2019-10-22 10:12 | MRI ---
MRI of thebrain without contrast: 10/22/2019 COMPARISON:06/14/2019 HISTORY:Prior stroke, difficulty forming words, evaluate for acute infarction TECHNIQUE: Multiplanar multisequence MR imaging of thebrain without contrast Findings:The diffusion weighted imaging demonstrates no evidence for acute infarction. Regional bone marrow signal intensity appears within normal limits. There is multifocal periventricular, deep, and subcortical white matter T2/FLAIR hyperintensity, evid ence of small vessel disease. Stable cerebral volume loss. The axial gradient echo imaging demonstrates numerous intra-axial foci of blooming artifact suggestin g foci of prior microhemorrhage, similar when compared to the 06/14/2019 examination. There is polypoid mucosal thickening involving the alveolar recess of the maxillary sinus on the left. Arteria l flow voids at the axial level of the skull base appear grossly intact. IMPRESSION:Chronic findings as detailed above. No evidence for acute infarction.
--- NOTE | 2019-10-22 10:41 | PRG ---
DATE OF SERVICE: 10/22/2019 IMPRESSION: Possible transient ischemic attack, despite aspirin therapy. PLAN: 1. Add Plavix 75 mg per day. 2. Continue aspirin and statin. The patient can be discharged home. Mr. Willis is an 84-year-old gentleman, who was admitted back in June for a stroke workup. His MRI confirmed an ischemic event in the cerebellum. He had some ataxia. At that time, he was subsequently started on aspirin in conjunction with his statin. He went on to rehab. His workup at that time revealed acute left cerebellar stroke. His carotid ultrasound did not show any stenosis. Ejection fraction was 55% to 60%. His symptoms at this time lasted about 2 hours and it was not associated with any focal weakness or numbness. His MRI of the brain is negative for new ischemic event. Given the clinical picture, I would add Plavix for the next 6 months. I would be happy to follow up with him as an outpatient. Job ID: [id number]
[2019-10-22 11:54] VITALS: BP 171/95; TEMP 97.4
--- NOTE | 2019-10-22 12:20 | PDOC.EVN ---
Event Note - Event Note Event Note: Patient had FLP in June. Already on a statin. No indication to repeat FLP now. Can follow with PCP for followup on this.
--- NOTE | 2019-10-22 13:15 | EKG ---
Test Reason : Blood Pressure : / mmHG Vent. Rate : 081 BPM Atrial Rate : 081 BPM P-R Int : 172 ms QRS Dur : 106 ms QT Int : 386 ms P-R-T Axes : 049 -46 072 degrees QTc Int : 448 ms Normal sinus rhythm Left anterior fascicular block Left ventricular hypertrophy with repolarization abnormality Abnormal ECG Confirmed by GIORGI LOPEZ, CHALINO ([id number]), technical editor LIO ZIMMERMAN ([id number]) on 10/22/2019 1:15:34 PM Referred By: Confirmed By:CHALINO RAND MD
--- NOTE | 2019-10-22 21:18 | DIS ---
DATE OF ADMISSION: 10/21/2019 DATE OF DISCHARGE: 10/22/2019 DISCHARGE DIAGNOSES: 1. Transient ischemic attack. 2. History of prior cerebrovascular accident. 3. Diabetes mellitus. 4. Hypothyroidism. 5. Hypertension. 6. Hyperlipidemia. HISTORY OF PRESENT ILLNESS: This patient is an 84-year-old male who was admitted in June with some vertigo symptoms and had MRI confirming a left cerebellar CVA. The patient recovered well, was in his usual state of health at home when he developed some acute dysarthria, was subsequently brought to the emergency department and had a CT scan, which showed no acute findings. He was given Plavix in addition to his usual aspirin doses. This had been the recommendation of Dr. Saldivar, who is his neurologist. The patient was placed in observation. The following morning, his speech had improved to what he considered. His baseline MRI of the brain showed no acute findings. He was seen in consultation by Dr. Saldivar, who felt this was consistent with a TIA and the patient could safely be discharged for outpatient followup. PHYSICAL EXAMINATION: VITAL SIGNS: At the time of discharge, temperature 97.4, pulse 75, respirations 16, O2 saturation 96% on room air, and blood pressure is 175/95. GENERAL: He is awake and alert. HEART: Regular. LUNGS: Clear. ABDOMEN: Benign. NEUROLOGIC: His speech appeared to be clear and intact without any significant deficit. Had no other neurologic deficits appear to be getting up, moving around, ambulating quite well. DISPOSITION: The patient is discharged to home. He will continue his usual home medications with the addition of Plavix 75 mg daily. ACTIVITY: As tolerated. DIET: He will remain on a heart healthy diet. FOLLOWUP: He is to follow up with Dr. Saldivar and he can return to the hospital at anytime should he have the need to do so. Job ID: [id number]
--- NOTE | 2019-10-26 11:52 | CT ---
CTA OF THE HEAD AND NECK UTILIZING IV CONTRAST AND 3D REFORMATTED IMAGIN10/21/19 COMPARISON: MRI of the brain dated 06/14/[address] of the brain dated 10/21/19. FINDINGS: CTA OF THE NECK: There is nonspecific mildly enlarged lymph nodes within the mediastinum. There is mild interstitial a nd scattered ground glass opacities which are nonspecific and can be seen with subsegmental volume lo ss. There is fluid and debris within the esophagus that may reflect reflux versus esophagitis. No hemodynamically significant stenosis is evident. There are mild vascular calcifications involving the carotids. There is some mild narrowing involving the proximal aspect of the left vertebral artery . No lymphadenopathy is seen within the neck. The parotid, submandibular, and visualized thyroid gland appear within normal limits. Aerodigestive tract is normal appearing. Scattered degenerative and osteoarthritic change is present. No acute osseous abnormality is evident. CTA OF THE HEAD: No hemodynamically significant stenosis is evident. 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 There is moderate chronic small vessel white matter ischemic change with remote lacunar infarcts invo lving bilateral globus pallidus and right caudate head. There is an enhancing 1 cm mass seen underlying the left anterior frontal lobe on image 214 of series 4 that is likely extra-axial in location and may reflect and underlying meningioma. No additional ar ea of abnormal enhancement is demonstrated. The bilateral lens have been replaced. There is mucus retention cyst within the inferior aspect of th e left maxillary sinus. Small sebaceous cyst is seen within the right frontal scalp. IMPRESSION: 1.No hemodynamically significant stenosis identified. 2. Enhancing extra-axial mass seen involving the left anterior cranial fossa suspicious for meni ngioma. This could be followed up with an MR of the brain with and without contrast to verify this ab normality. 3.Moderate chronic small vessel ischemic change. 4. Mild narrowing involving the proximal aspect of the left vertebral artery. 5.Nonspecific mildly enlarged lymph nodes of the upper mediastinum. 6.Fluid and debris within the esophagus may reflect reflux esophagitis or dysmotility.
== END 2019-10-22 14:15 | disposition home or self-care (01) ==
LOC: ERS 16:14 → 2SE 17:54
PROVIDERS: ADMIT Internal Medicine; ATTEND Internal Medicine
DX: G45.9 Transient cerebral ischemic attack, unspecified (principal); L72.3 Sebaceous cyst; J34.1 Cyst and mucocele of nose and nasal sinus; E03.9 Hypothyroidism, unspecified; E11.9 Type 2 diabetes mellitus without complications; E78.5 Hyperlipidemia, unspecified; I10 Essential (primary) hypertension; Z79.82 Long term (current) use of aspirin; Z79.84 Long term (current) use of oral hypoglycemic drugs; Z79.899 Other long term (current) drug therapy
CPT/HCPCS: 70450; 70496; 70498; 70551; 71045; 80053; 82550; 82962 ×2; 83880; 84484; 85025; 85610; 85730; 93005; 96372; 96374; 97139 ×4; 99285; G0378 ×3; J1650; Q9967; 36416; 81003; 81015; J0171

== ENCOUNTER 2020-07-04 20:55 | Inpatient (IN) | payer MEDICARE ==
[2020-07-04 21:09] LABS: #Basophils 0.1 thou/uL (0.0-0.2); #Monocytes 0.7 thou/uL (0.11-0.59); #Neutrophils 4.3 thou/uL (1.40-6.50); %Eosinophils 10.7 % (0.0-10.0); %Lymphocytes 33.2 % (21.0-51.0); %Monocytes 7.3 % (0.0-10.0); %Neutrophils 47.8 % (42.0-75.0); Mean Corpuscular HGB CONC 33.6 g/dL (32.0-36.0); Mean Corpuscular Hemoglobin 30.2 pg (27.0-31.0); Mean Corpuscular Volume 89.8 fL (78.0-98.0); Mean Platelet Volume 8.7 fL (7.4-10.4); Platelet Count 262 thou/uL (130-400); RBC Distribution Width 11.8 % (11.5-14.5); Red Blood Cell (RBC) Count 4.62 mill/uL (4.70-6.10); White Blood Cell (WBC) Count 9.1 thou/uL (4.8-10.8)
--- NOTE | 2020-07-04 21:10 | CT ---
EXAM: CT brain without contrast HISTORY: Slurred speech COMPARISON: 10/21/2019 TECHNIQUE: Multiple contiguous axial images were obtained and a CT of the brain without contrast. FINDINGS: There are scattered hypodensities in the subcortical and periventricular white matter consi stent with small vessel ischemic disease. There is no evidence of hydrocephalus, intracranial hemorrhage, or extra-axial fluid collection. The calvarium and overlying soft tissues are unremarkable. The visualized paranasal sinuses and masto id air cells are well aerated. IMPRESSION: No evidence of acute intracranial abnormality Dr. Perez notified of findings at 9:08 PM on 07/04/2020.
[2020-07-04 21:15] LABS: Prothrombin Time 12.9 sec (12.0-14.7)
[2020-07-04 21:16] LABS: PTT 26.4 sec (22.9-36.1)
[2020-07-04 21:23] LABS: ALT (SGPT) 24 U/L (8-55); AST (SGOT) 12 U/L (5-34); Albumin 3.9 g/dL (3.4-4.8); Alkaline Phosphatase 66 U/L (40-110); Anion Gap 17 mmol/L (10-20); BUN (Urea Nitrogen) 36 mg/dL (8.4-25.7); Bilirubin, Total 0.3 mg/dL (0.2-1.2); CK (CPK) 94 U/L (30-200); Calc. Creatinine Clearance 0 mL/min (70-130); Calcium 9.3 mg/dL (7.8-10.44); Carbon Dioxide 27 mmol/L (23-31); Chloride 93 mmol/L (98-107); Globulin 3.2 g/dL (2.4-3.5); Potassium 4.6 mmol/L (3.5-5.1); Protein, Total 7.1 g/dL (5.8-8.1); Sodium 132 mmol/L (136-145)
[2020-07-04 21:29] LABS: Glucose 643 mg/dL (83-110)
--- NOTE | 2020-07-04 21:59 | RAD ---
EXAM: Single view of the chest HISTORY: Stroke with slurred speech COMPARISON: 10/21/2019 FINDINGS: Single view of the chest shows an enlarged but stable cardiomediastinal silhouette. Increa sed interstitial lung markings are present. There is no evidence of consolidation, mass, or pleural effusion. Degenerative changes are seen in the spine and shoulders. IMPRESSION: No evidence of acute cardiopulmonary disease
[2020-07-04] MEDS ORDERED: Insulin Regular 300 UNITS/3 ML VIAL ONE (22:39)
[2020-07-04] MEDS ORDERED: Aspirin Chewable 81 MG TAB ONE (22:39)
[2020-07-04 22:49] LABS: Bilirubin Negative (Negative); Blood, Urine Negative (Negative); Clarity Clear (Clear); Glucose, Urine (Dipstick) Greater than 1000 mg/dL (Negative); Ketone, Urine Negative (Negative); Leukocyte Negative Leu/uL (Negative); Nitrite Negative (Negative); Protein, Urine (Dipstick) 20 mg/dL (Neg-Trace); Specific Gravity, Urine 1.024 (1.002-1.036); Urobilinogen Normal mg/dL (Less than 2); pH, Urine 7.5 (5.0-9.0)
[2020-07-04 22:58] LABS: Amphetamine Not Detected (NotDetected); Barbiturates Screen Not Detected (NotDetected); Benzodiazepine Screen Not Detected (NotDetected); Cocaine Metabolite Screen Not Detected (NotDetected); Medtox Control Line Valid? VALID (VALID); Medtox Reader # READER 4; Methadone Not Detected (NotDetected); Methamphetamine Not Detected (NotDetected); Opiate Screen Not Detected (NotDetected); Oxycodone Screen Not Detected (NotDetected); Phencyclidine (PCP) Not Detected (NotDetected); THC/Cannabinoid Screen Not Detected (NotDetected); Tricyclic Screen Not Detected (NotDetected)
[2020-07-04 22:59] LABS: Acetaminophen Less than 6.0 mcg/mL (10.0-30.0); Alcohol Less than 10 mg/dL (Less than 10); Salicylate Less than 8.0 mg/dL (15.0-30.0)
[2020-07-05] MEDS ORDERED: Labetalol HCl 100 MG/20 ML VIAL SLOW IVP PRN (00:29)
[2020-07-05] MEDS ORDERED: hydrALAZINE 20 MG/ML VIAL SLOW IVP PRN (00:29)
[2020-07-05] MEDS ORDERED: VANCOMYCIN IVPB SCH (00:30)
[2020-07-05] MEDS ORDERED: Acetaminophen 325 MG TAB PO PRN ×2 (00:30→00:43)
[2020-07-05] MEDS ORDERED: Ondansetron ODT 4 MG TAB SL PRN (00:30)
[2020-07-05] MEDS ORDERED: Ondansetron PF 4 MG/2 ML Vial IVP PRN ×2 (00:30→00:43)
[2020-07-05] MEDS ORDERED: Dextrose 5% in Water 1,000 ML IV PRN (00:32)
[2020-07-05] MEDS ORDERED: Dextrose 50% Abboject 50 ML SYRINGE SLOW IVP PRN (00:32)
[2020-07-05] MEDS ORDERED: Senokot S 8.6-50 MG TAB PO PRN (00:43)
[2020-07-05] MEDS ORDERED: Bisacodyl 5 MG TAB PO PRN (00:43)
[2020-07-05] MEDS ORDERED: Ondansetron ODT 4 MG TAB PO PRN (00:43)
[2020-07-05] MEDS ORDERED: Acetaminophen 650 MG Suppository PR PRN (00:43)
[2020-07-05] MEDS ORDERED: Sodium Chloride 0.9% 1,000 ML IV SCH (02:00)
[2020-07-05 02:01] LABS: #Basophils 0.1 thou/uL (0.0-0.2); #Eosinphils 0.6 thou/uL (0.0-0.7); #Lymphocytes 1.7 thou/uL (1.20-3.40); #Monocytes 0.8 thou/uL (0.11-0.59); #Neutrophils 8.7 thou/uL (1.40-6.50); %Eosinophils 4.7 % (0.0-10.0); %Lymphocytes 14.3 % (21.0-51.0); %Monocytes 6.6 % (0.0-10.0); %Neutrophils 73.4 % (42.0-75.0); Hemoglobin 15.1 g/dL (14.0-18.0); Mean Corpuscular HGB CONC 34.8 g/dL (32.0-36.0); Mean Corpuscular Hemoglobin 30.9 pg (27.0-31.0); Mean Corpuscular Volume 88.8 fL (78.0-98.0); Mean Platelet Volume 8.6 fL (7.4-10.4); Platelet Count 260 thou/uL (130-400); RBC Distribution Width 11.9 % (11.5-14.5); White Blood Cell (WBC) Count 11.8 thou/uL (4.8-10.8)
--- NOTE | 2020-07-05 02:26 | HP ---
PCP: Unknown. CHIEF COMPLAINT: Confusion/slurred speech. HISTORY OF PRESENT ILLNESS: The majority of the H and P was taken from the ER documentation secondary to the patient's altered mental status. The patient is an 85-year-old male with a past medical history significant for CVA with no residual deficits, CAD, DM2, and hypothyroidism, who presents to the emergency department via EMS for the above complaint. According to ER documentation, the patient's was sitting at home speaking to the patient when he became confused and had slurred speech. This was at approximately 08:45 p.m. The patient had a stroke in the past and the was concerned for repeat stroke. She called EMS. According to the ER documentation, there is no recent fall or trauma. No recent change in his home medications. No recent illness or fever. No known sick contacts. No recent surgeries. EMS was called, and the patient was taken to the hospital for further evaluation. In the ER, the patient was found to be hypertensive with a blood pressure of 190/87 with normal heart rate, respirations, and SpO2 saturation. He was afebrile. EKG was normal sinus rhythm, 76 beats per minute with left ventricular hypertrophy. Initial troponin was negative. CT brain was negative for any acute process. CTA of the head and neck did show left frontal meningioma. Lab work showed the patient had a blood glucose of 643. According to the ER documentation, the patient's symptoms were improving and there is documentation of NIH of 1 for some left visual deficits. The patient was given aspirin 243 mg, 1 L normal saline, and 10 units of regular insulin and was admitted to the floor for further evaluation. PAST MEDICAL HISTORY: 1. CVA in October 2019. No residual deficits. 2. Hypertension. 3. CAD. 4. HLD. 5. Hypothyroidism, status post thyroidectomy. 6. DM2. 7. GERD. 8. BPH. PAST SURGICAL HISTORY: 1. Appy. 2. Priti. 3. Hernia. 4. Thyroidectomy. 5. Left total knee replacement. 6. Back surgery. 7. Carpal tunnel surgery. SOCIAL HISTORY: The patient lives with his family at home. Unknown if he has ever smoked. Denies any heavy alcohol use or illicit drug use. Unknown if the patient still works. There is documentation that he used to walk without any assistive devices. FAMILY HISTORY: Unable to gather at bedside due to the patient's altered mental status. ALLERGIES: NO KNOWN DRUG ALLERGIES. HOME MEDICATIONS: 1. Plavix 75 mg p.o. daily. 2. Avodart 0.5 mg p.o. q.a.m. 3. Synthroid 150 mcg p.o. q.a.m. 4. Lisinopril 20 mg p.o. at bedtime. 5. Atorvastatin 40 mg p.o. at bedtime. 6. Metformin 1000 mg p.o. b.i.d. 7. Omeprazole 20 mg p.o. q.a.m. REVIEW OF SYSTEMS: Unable to ascertain due to the patient's altered mental status. PHYSICAL EXAMINATION: VITAL SIGNS: Temperature 98.8 oral Fahrenheit, BP 187/102, heart rate 76, respirations 18, SpO2 is 96% on room air. CONSTITUTIONAL: The patient is nontoxic, in no acute distress, hypertensive. HEAD: Atraumatic, normocephalic. EYES: PERRLA. Extraocular muscles intact. ENT: Bilateral EACs are clear. TMs intact. Oropharynx is clear. Uvula midline. No oral lesions. NECK: Full range of motion. No cervical spinous tenderness. Trachea midline. Neck is supple. RESPIRATORY/CHEST: Respirations are even and nonlabored. Clear to auscultation. No rhonchi, wheezes, or rales. CARDIOVASCULAR: S1, S2 appreciated. No murmurs, rubs, or gallops. ABDOMEN: Soft, nontender, nondistended. Active bowel sounds. No guarding. No rigidity. No rebound tenderness. Negative Rovsing sign. Negative Nielson sign. No abdominal bruit auscultated. BACK: Full range of motion. No central spinous tenderness. No CVA tenderness. BILATERAL UPPER EXTREMITIES: Full range of motion, normal strength, sensation intact. Palpable radial pulse. No open lesions. LOWER EXTREMITIES: Full range of motion, normal strength, sensation intact. Palpable pedal pulses. No swelling. NEUROLOGICAL: Difficult to assess. The patient is alert and oriented to person, follows some commands. No focal motor deficits to his extremities. Unable to assess ataxia. Has aphasia. Questionable slurred speech. PSYCHIATRIC: The patient is alert and oriented to person. LABS AND DIAGNOSTICS: Sodium 132, potassium 4.6, chloride 93, carbon dioxide 27, BUN 36, creatinine 1.88, GFR 34. Glucose was 643. Lactic acid 2.5. Repeat is pending. Calcium 9.3, magnesium 1.8, total bili 0.3, AST 12, ALT 24, alk phos 66. Initial troponin negative. WBCs 9.1, hemoglobin 14, hematocrit 41.5, platelets 262. PT 12.9, INR 1.0, APTT 26.4. UA was positive for glucose greater than 1000. Tox screen was unremarkable. CT of brain negative for any acute intracranial process. CTA of head and neck, impression: 1. No significant CT abnormality of the neck. 2. No significant CT abnormality of the head. 3. Stable area of enhancement in the left frontal lobe, may represent a meningioma. This was not appreciated on a prior MRI, but this was performed without contrast making less sensitive. IMPRESSION: 1. Altered mental status. 2. Hyperglycemia. 3. Lactic acidosis. 4. Hyponatremia. 5. Chronic kidney disease, stage 3. 6. Diabetes mellitus type 2. 7. Hypothyroidism. 8. Coronary artery disease. 9. Hypertension. 10. Hyperlipidemia. 11. History of cerebrovascular accident. 12. Gastroesophageal reflux disease. 13. Benign prostatic hyperplasia. PLAN: The patient's history is concerning for acute stroke. The patient had a documented stroke in October 2019. He was started on aspirin and Plavix and has been compliant since according to ER documentation. The patient presented hypertensive with an elevated glucose. ER documentation shows the patient with an NIH of 1 for some left-sided visual deficits. However, upon assessment on the floor, the patient is confused with aphasia. He follows some commands. No focal motor deficits. We will work up CVA versus metabolic encephalopathy. The patient has an elevated Lactic acid level. Will start broad spectrum antibiotics, repeat LA. We will order MRI, echocardiogram. Consult Neurology and Stroke Team. Continue aspirin and home dose of Plavix. Continue home dose of statin. Neuro checks and permissive hypertension. We will hold the patient's home dose of metformin and start the patient on moderate intermittent sliding scale. Accu-Cheks q.6 due to the patient's n.p.o. status. The patient's sodium corrected for hyperglycemia, it is 141, stable. The patient's chronic kidney disease stage 3 appears stable and chronic. We will check stat TSH level. SCDs for deep venous thrombosis prophylaxis. Protonix for GI prophylaxis. CODE STATUS IS Full code. The patient's contact is his spouse, Inocente Willis. I left a voicemail on her cell phone number that was listed in the EMR. Discussed the case with attending physician, Dr. King. Job ID: [id number] [id number]
[2020-07-05 02:51] LABS: Lactic Acid 2.3 mmol/L (0.5-2.2)
[2020-07-05 02:55] LABS: Anion Gap 15 mmol/L (10-20); BUN (Urea Nitrogen) 33 mg/dL (8.4-25.7); Calc. Creatinine Clearance 0 mL/min (70-130); Calcium 9.5 mg/dL (7.8-10.44); Carbon Dioxide 27 mmol/L (23-31); Cardiac Risk 3.7 (Less than 4.5); Chloride 95 mmol/L (98-107); Cholesterol 155 mg/dl (< 200 Desired); Glucose 390 mg/dL (83-110); HDL Cholesterol 42 mg/dL (>60 Neg Risk); LDL Cholesterol, Calculated 80 mg/dL; Potassium 4.4 mmol/L (3.5-5.1); Sodium 133 mmol/L (136-145); Triglycerides 164 mg/dL (Less than 150)
[2020-07-05] MEDS ORDERED: Vancomycin HCl 1.75 GM in Sodium Chloride 0.9% 500 ML IVPB SCH (03:15)
[2020-07-05 03:16] VITALS: BMI 28.1
[2020-07-05] MEDS ORDERED: Piperacillin/Tazobactam 3.375 GM in Sodium Chloride 0.9% 100 ML IVPB SCH ×2 (04:00→06:00)
[2020-07-05] MEDS ORDERED: Triple Antibiotic Oint 1 GM Packet TOP PRN (05:56)
[2020-07-05] MEDS: Levothyroxine 150 MCG TAB PO SCH (06:04)
--- NOTE | 2020-07-05 08:50 | MRI ---
Exam: Brain MRI without contrast HISTORY: Evaluate for stroke. COMPARISON: 10/22/2019 FINDINGS: Calvarial marrow signal intensity: Appropriate T1 signal Gradient echo sequence: No acute hemorrhage. Stable hypointensities which may represent amyloid angio maycol versus remote hemorrhagic lacunar infarcts. Brain parenchyma: No mass, mass effect or midline shift. Brain volume, age-appropriate. Cortical kelly-white matter differentiation: Preserved Restricted diffusion: Central arterial flow voids are maintained. Absent restricted diffusion White matter signal intensities: T2, FLAIR white matter hyperintensities due to chronic small vessel ischemic changes Sinuses: Adequate aeration of the paranasal sinuses and mastoid air cells. Small left maxillary sinus mucus retention cyst. IMPRESSION: 1. Absent restricted diffusion. No acute infarction.
[2020-07-05] MEDS ORDERED: Aspirin 81 mg Enteric Coated Tablet PO SCH (09:00)
[2020-07-05] MEDS ORDERED: FLU VACC QS2020-21(65YR UP)/PF 240 MCG/0.7 ML SYRINGE IM ONE (09:00)
[2020-07-05] MEDS ORDERED: Clopidogrel Bisulfate 75 MG TAB PO SCH (09:00)
[2020-07-05 09:03] LABS: SARS-CoV-2 MS2 Positive; SARS-CoV-2 N Gene Negative; SARS-CoV-2 S Gene Negative; SARS-CoV-2 by NAA Not Detected (NotDetected); SARS-CoV-2 orf1ab Negative
[2020-07-05] MEDS: Pantoprazole 40 MG VIAL IVP SCH (09:44)
[2020-07-05] MEDS: Dutasteride 0.5 MG CAP PO SCH (09:44)
[2020-07-05] MEDS ORDERED: Insulin Glargine 8 UNITS in Pre-Filled Syringe 1 EACH SC SCH (11:15)
[2020-07-05 11:26] LABS: Hemoglobin 13.6 g/dL (14.0-18.0); Mean Corpuscular HGB CONC 33.6 g/dL (32.0-36.0); Mean Corpuscular Hemoglobin 30.3 pg (27.0-31.0); Mean Corpuscular Volume 90.3 fL (78.0-98.0); Mean Platelet Volume 8.8 fL (7.4-10.4); Platelet Count 239 thou/uL (130-400); RBC Distribution Width 11.8 % (11.5-14.5); Red Blood Cell (RBC) Count 4.47 mill/uL (4.70-6.10)
[2020-07-05 11:37] LABS: Hemoglobin A1c 12.1 % (4.0-6.0)
[2020-07-05 11:50] LABS: Lactic Acid 3.3 mmol/L (0.5-2.2)
[2020-07-05 11:53] LABS: Anion Gap 14 mmol/L (10-20); BUN (Urea Nitrogen) 24 mg/dL (8.4-25.7); Calc. Creatinine Clearance 44 mL/min (70-130); Calcium 8.1 mg/dL (7.8-10.44); Carbon Dioxide 23 mmol/L (23-31); Chloride 100 mmol/L (98-107); Glucose 384 mg/dL (83-110); Potassium 4.4 mmol/L (3.5-5.1); Sodium 133 mmol/L (136-145)
[2020-07-05] MEDS: Sodium Chloride 0.9% 1,000 ML IV SCH ×2 (12:28→22:58)
[2020-07-05] MEDS: HumaLOG 300 UNITS/3 ML VIAL SC PRN ×2 (12:52→18:15)
[2020-07-05] MEDS ORDERED: Labetalol HCl 100 MG/20 ML VIAL ONE (16:51)
--- NOTE | 2020-07-05 17:30 | PDOC.HOSPP ---
- Subjective Encounter Date: 07/05/20 Encounter Time: 10:00 Subjective: AMS: Patient states he was injecting his with insulin when he was not responding. Patient had no focal arm or leg weakness. His called the ambulance and brought him to the emergency room where he was found to have a blood glucose of greater than 600. Patient states that he has been drinking eggnog nightly. He states that he takes his Metformin regularly at home. The patient states he wants to go home because he has the sole foot cutter of his with dementia. He is the only one that injects her insulin. - Objective Vital Signs & Weight: Vital Signs (12 hours) Temp Pulse Pulse Pulse Resp BP BP 07/05/20 17:03 64 07/05/20 15:35 98.0 F 64 18 07/05/20 13:20 65 146/74 H 154/83 H 07/05/20 11:05 98.6 F 64 14 07/05/20 10:15 70 72 140/82 175/94 H 07/05/20 08:00 07/05/20 07:25 98.5 F 74 14 BP Pulse Ox 07/05/20 17:03 07/05/20 15:35 143/71 H 96 07/05/20 13:20 07/05/20 11:05 144/74 H 96 07/05/20 10:15 07/05/20 08:00 140/52 L 07/05/20 07:25 94 L Weight Admit Weight 185 lb Weight 185 lb I&O: 07/04/20 07/05/20 07/06/20 06:59 06:59 06:59 Intake Total 1600 720 Balance 1600 720 Result Diagrams: 07/05/20 11:03 07/05/20 11:03 Additional Labs: Accuchecks 07/05/20 07/05/20 07/05/20 12:44 06:37 00:13 POC Glucose 363 H 350 H 333 H 07/04/20 07/04/20 23:25 22:35 POC Glucose 399 H 442 H Hospitalist ROS - Review of Systems Constitutional: denies: fever, chills - Medication Medications: Active Medications Generic Name Dose Route Start Last Admin Trade Name Freq PRN Reason Stop Dose Admin Dutasteride 0.5 mg 07/05/20 09:00 07/05/20 09:44 Dutasteride 0.5 Mg Cap PO 0.5 mg QAM MARIE Administration Sodium Chloride 1,000 mls @ 100 mls/hr 07/05/20 12:15 07/05/20 12:28 Normal Saline 0.9% IV 1,000 mls .Q10H MARIE Administration Insulin Human Lispro 0 units 07/05/20 00:32 07/05/20 12:52 Humalog 300 Units/3 Ml Vial SC 10 unit .MODERATE SLIDING SC PRN Administration Moderate Correctional Scale Levothyroxine Sodium 150 mcg 07/05/20 06:00 07/05/20 06:04 Levothyroxine 150 Mcg Tab PO Not Given 0600 MARIE Ondansetron HCl 4 mg 07/05/20 00:43 07/05/20 02:27 Ondansetron Pf 4 Mg/2 Ml Vial IVP 4 mg Q6H PRN Administration Nausea/Vomiting Pantoprazole Sodium 40 mg 07/05/20 09:00 07/05/20 09:44 Pantoprazole 40 Mg Vial IVP 40 mg DAILY MARIE Administration Sodium Chloride 10 ml 07/05/20 00:29 07/05/20 02:27 Flush - Normal Saline 10 Ml Syringe IVF 10 ml PRN PRN Administration Saline Flush - Exam General Appearance: NAD, awake alert Eye: PERRL, anicteric sclera ENT: normocephalic atraumatic, no oropharyngeal lesions Neck: no JVD Heart: RRR, no murmur, no gallops, no rubs Respiratory: CTAB, no wheezes, no rales, no ronchi Gastrointestinal: soft, non-tender, non-distended, normal bowel sounds Extremities: no cyanosis, no clubbing, no edema Skin: normal turgor, no lesions, no rashes Neurological: cranial nerve grossly intact, normal sensation to touch, no weakness Musculoskeletal: normal tone, normal strength, no muscle wasting Psychiatric: normal affect, normal behavior, A&O x 3, oriented to person Hosp A/P - Plan CT head: No acute disease CTA head and neck: Left frontal lobe may represent a meningioma. Chest x-ray 07/04: No acute disease MRI brain 07/05: Absent restricted diffusion. No acute infarction This is an 85-year-old male with a past medical history of diabetes who presented to the emergency room with altered mental status, and was found to have a blood sugar greater than 600. Acute metabolic encephalopathy-likely secondary to hyperglycemia -CTA head and neck, MRI of the brain showed no stroke. Patient's mental status seems at baseline. Uncontrolled diabetes -Hemoglobin A1c is 12.1. Patient takes Metformin twice daily at home. Started the patient on Lantus 8 units daily. I have also added sliding scale insulin Lactic acidosis -possibly secondary to Metformin? -Patient's lactate level has increased to 3. His chest x-ray and UA appear unremarkable. There are no clear signs of infection. Will hydrate with IV fluids. -We will discontinue antibiotics and monitor for any fever Anemia -Hemoglobin 13.6. Hyponatremia -Sodium 133. Likely secondary to hyperglycemia. Will monitor KEVIN - creatinine improved to 1.4.
--- NOTE | 2020-07-05 17:39 | PDOC.EVN ---
Event Note - Event Note Event Note: Attempted calling the today for an update, but I am unable to get a hold of her
--- NOTE | 2020-07-05 18:46 | CON ---
DATE OF CONSULTATION: 07/05/2020 CONSULTING PHYSICIAN: Hospitalist Service. IMPRESSION: 1. Transient dysarthria secondary to hyperglycemia. 2. Mild dementia. 3. Coronary artery disease. 4. Diabetes. 5. Hypertension. 6. Hyperlipidemia. PLAN: Continue aspirin and Plavix. HISTORY OF PRESENT ILLNESS: Mr. Willis is an 85-year-old gentleman who was admitted after developing slurred speech. He admits that he has been drinking a lot of Eggnog and not taking care of his diet the way he should who came in with a blood sugar of 643. His CT and CT angiogram were both unremarkable. He had an MRI of the brain done since admission, which failed to show any acute changes. There are some small vessel ischemic changes. He is without any other complaints at this point. He is anxious to get home if he could. PAST MEDICAL HISTORY: As listed above. ALLERGIES: NONE REPORTED. SOCIAL HISTORY: No tobacco or alcohol. FAMILY HISTORY: Noncontributory. REVIEW OF SYSTEMS: Ten-system review of systems is otherwise negative. PHYSICAL EXAMINATION: VITAL SIGNS: Have been stable. He is afebrile. HEENT: Pupils are equal. Conjunctivae clear. Oropharynx clear. Cranium, normocephalic and atraumatic. NECK: Supple. No lymphadenopathy. ABDOMEN: Soft and nontender. EXTREMITIES: No cyanosis or edema. SKIN: Clear. NEUROLOGIC: He was alert and cooperative. He had fluent clear speech. He did recall meeting me in the past. He otherwise had some signs of mild cognitive impairment. He had nothing focal on exam. No abnormal movements were seen. IMPRESSION: Elderly man with transient dysarthria secondary to severe hyperglycemia and does not appear to be in acute neurologic issues. Appears to be stable for discharge. Job ID: [id number]
[2020-07-05] MEDS ORDERED: Lisinopril 20 MG TAB PO SCH (21:00)
[2020-07-05] MEDS ORDERED: Atorvastatin Calcium 40 MG TAB PO SCH ×2 (21:00)
[2020-07-06] MEDS ORDERED: Vancomycin 1 GM in Premix Bag 1 BAG IVPB SCH (05:00)
[2020-07-06 05:36] LABS: Hemoglobin 13.3 g/dL (14.0-18.0); Mean Corpuscular Hemoglobin 30.7 pg (27.0-31.0); Mean Corpuscular Volume 90.3 fL (78.0-98.0); Mean Platelet Volume 8.5 fL (7.4-10.4); Platelet Count 238 thou/uL (130-400); RBC Distribution Width 11.9 % (11.5-14.5); Red Blood Cell (RBC) Count 4.33 mill/uL (4.70-6.10)
[2020-07-06 05:51] LABS: Lactic Acid 1.1 mmol/L (0.5-2.2)
[2020-07-06 06:00] LABS: Anion Gap 10 mmol/L (10-20); BUN (Urea Nitrogen) 19 mg/dL (8.4-25.7); Calc. Creatinine Clearance 48 mL/min (70-130); Calcium 7.9 mg/dL (7.8-10.44); Carbon Dioxide 28 mmol/L (23-31); Chloride 104 mmol/L (98-107); Glucose 225 mg/dL (83-110); Potassium 4.3 mmol/L (3.5-5.1); Sodium 138 mmol/L (136-145)
[2020-07-06 06:21] LABS: Thyroid Stimulating Hormone 1.8879 uIU/mL (0.35-4.94)
[2020-07-06] MEDS: Levothyroxine 150 MCG TAB PO SCH (06:21)
[2020-07-06] MEDS: HumaLOG 300 UNITS/3 ML VIAL SC PRN ×2 (06:21→13:06)
[2020-07-06] MEDS ORDERED: Insulin Glargine 9 UNITS in Pre-Filled Syringe 1 EACH SC SCH (09:00)
[2020-07-06] MEDS ORDERED: Insulin Glargine 8 UNITS in Pre-Filled Syringe 1 EACH SC SCH (09:00)
[2020-07-06] MEDS: Sodium Chloride 0.9% 1,000 ML IV SCH (09:16)
[2020-07-06] MEDS: Dutasteride 0.5 MG CAP PO SCH (09:16)
[2020-07-06] MEDS: Pantoprazole 40 MG VIAL IVP SCH (09:16)
[2020-07-06 11:08] VITALS: BP 172/80; TEMP 98.1
--- NOTE | 2020-07-06 18:50 | PDOC.DS.DS ---
Provider - Provider Date of Admission: 07/05/20 21:59 Date of Discharge: 07/06/20 Admitting Provider: Reymundo King MD Consultations: Neurology (Dr. Earl Saldivar) Primary Care Physician: Marcel Thomas MD Course - Hospital Course Hospital Course: Brief HPI: This is an 85 year old male who presented to the ER for slurred speech and decreased responsiveness. He was drinking excessive amounts of egg- nog. His blood sugar was > 600. Creatinine ws 1.6 and lactate was > 2 so he was started on Iv antibiotics. The patient was admitted for further workup. Hospital Course: Slurred speech: this was likely secondary to uncontrolled diabetes. CTA of his head and neck and MRI of the brain showed no acute abnormalities. ECHO was unremarkable. Neurology was consulted and did not think this was a TIA. The patient was seen by speech therapy, physical therapy and occupational therapy and was cleared for discharge. Uncontrolled diabetes: The patient presented with a blood sugar of 600. His HbA1C was 12. He was started on lantus 7 units SC qam and was discharged on a sliding scale. THe patient should follow up with his primary care doctor in a week. Acute Kidney Injury/Lactic acidosis: the patient presented with a creatinine of 1.6 which improved to 1.3 with IV fluids. Lactic acid improved from 3 to 1.9. He was originally started on vanc and cefepime. Chest X ray, UA were unremarkable. THe patient was resumed on his metformin, although consider discontinuing if lactic acidosis reoccurs. Pertinent Studies: CT head: No acute disease CTA head and neck: Left frontal lobe may represent a meningioma. Chest x-ray 07/04: No acute disease MRI brain 07/05: Absent restricted diffusion. No acute infarction Resuscitation Status: 07/05/20 00:43 Resuscitation Status Routine Co-Sign Provider: Resuscitation Status: FULL: Full Resuscitation Discussed with: patient AMS, unable to discuss with family Additional comments: LVM on spouse cell phone. no answer on home telephone number - Labs Lab Results: 07/06/20 05:23 07/06/20 05:23 Abnormal Lab Results - Last 48 hrs 07/04/20 21:00: Sodium 132 L, Chloride 93 L, BUN 36 H, Creatinine 1.88 H 07/04/20 21:00: RBC 4.62 L, Hct 41.5 L, Eosinophils % 10.7 H, Monocytes # 0.7 H, Eosinophils # 1.0 H 07/04/20 21:00: Lactic Acid 2.5 H 07/04/20 21:00: Salicylates Less than 8.0 L, Acetaminophen Less than 6.0 L 07/04/20 22:32: Urine Glucose (UA) Greater than 1000 A 07/05/20 00:55: Lactic Acid 3.0 H 07/05/20 01:51: Sodium 133 L, Chloride 95 L, BUN 33 H, Creatinine 1.63 H, Triglycerides 164 H 07/05/20 01:51: WBC 11.8 H, Lymphocytes % 14.3 L, Neutrophils # 8.7 H, Monocytes # 0.8 H 07/05/20 01:51: Lactic Acid 2.3 H 07/05/20 11:03: Sodium 133 L, Creatinine 1.42 H 07/05/20 11:03: Lactic Acid 3.3 H 07/05/20 11:03: Hemoglobin A1c 12.1 H 07/05/20 11:03: WBC 12.0 H, RBC 4.47 L, Hgb 13.6 L, Hct 40.4 L 07/06/20 05:23: RBC 4.33 L, Hgb 13.3 L, Hct 39.1 L Microbiology - Entire Visit 07/05/20 02:27 Venous blood - Left Hand Blood Culture - Preliminary Specimen has been received and culture in progress. No Growth to date. 07/05/20 02:12 Venous blood - Right Hand Blood Culture - Preliminary Specimen has been received and culture in progress. No Growth to date. - Physical Exam Vitals: Vital Signs (12 hours) Temp Pulse Resp BP Pulse Ox 07/06/20 11:06 98.1 F 57 L 20 172/80 H 97 07/06/20 07:16 98 F 59 L 16 178/78 H 97 Weight Admit Weight 185 lb Weight 185 lb Physical Exam: The patient was seen and examined on the day of discharge. General: patient is alert, awake, oriented times three CVS: RRR, no murmurs, rubs, gallops Lungs: CTAB Abdomen: +BS, soft, nontender, nondistended Extremities: no edema Neuro: CN II - XII intact. 5/5 strength in upper and lower extremities. Sensation normal in all four extremities. Strength 5/5 in upper and lower extremities. Problem - Time spent with Patient (mins): 40 Plan - Discharge Medications Prescriptions: Blood-Glucose Meter [Glucocom Blood Glucose Meter] 1 each ASDIR #1 kit Insulin Lispro [Humalog Kwikpen U-100] 2 unit SQ TID #1 vial Insulin Glargine [Lantus Vial] 7 units SC QAM #30 vial Blood Sugar Diagnostic [Test Strips] 1 each ACHS #120 strip Home Medications: Medication Instructions Recorded Confirmed Type Dutasteride 0.5 mg PO QAM 08/18/18 07/05/20 History Levothyroxine Sodium [Synthroid] 150 mcg PO QAM 08/18/18 07/05/20 History Lisinopril 20 mg PO HS 08/18/18 07/05/20 History Omeprazole 20 mg PO QAM 08/18/18 07/05/20 History metFORMIN HCl [Metformin HCl] 1,000 mg PO BID 08/18/18 07/05/20 History Aspirin [Ecotrin Low Strength] 81 mg PO DAILY tab 06/16/19 07/05/20 Rx Clopidogrel Bisulfate [Plavix] 75 mg PO DAILY #30 tab 10/22/19 07/05/20 Rx ALPRAZolam [Xanax] 0.25 mg PO HS PRN 07/05/20 07/05/20 History Pravastatin Sodium 40 mg PO HS 07/05/20 07/05/20 History Blood Sugar Diagnostic [Test 1 each ACHS #120 strip 07/06/20 Rx Strips] Blood-Glucose Meter [Glucocom 1 each ASDIR #1 kit 07/06/20 Rx Blood Glucose Meter] Insulin Glargine [Lantus Vial] 7 units SC QAM #30 vial 07/06/20 Rx Insulin Lispro [Humalog Kwikpen 2 unit SQ TID #1 vial 07/06/20 Rx U-100] Allergies: No Known Allergies Allergy (Verified 07/05/20 04:59) - Discharge Instructions Activity:: Activity as Tolerated - Follow up Plan Referrals: [facility]) [Outside] Marcel Thomas MD [Primary Care Provider] - Disposition: HOME HEALTH Quality - Care Measures CORE MEASURES:: N/A
--- NOTE | 2020-07-10 15:10 | CT ---
Exam: CTA neck with contrast CTA head with contrast HISTORY: Stroke with slurred speech COMPARISON: 10/21/2019 and MRI brain 10/22/2019 TECHNIQUE: 1. Multiple contiguous axial images were obtained and a CTA of the neck with contrast. 3-D sagittal a nd coronal MIP reformats were performed. 2. Multiple contiguous axial images were obtained and a CTA of the head with contrast. 3-D sagittal a nd coronal MIP reformats were performed. FINDINGS: CTA NECK: Aortic arch: Normal origin of the carotid arteries from the arch. No significant atherosclerotic dise ase of the subclavian arteries. Right common carotid artery: No significant atherosclerotic disease or narrowing Left common carotid artery: No significant atherosclerotic disease or narrowing Right internal carotid artery: Proximal atherosclerotic disease with approximately 25% stenosis per N ASCET criteria Right external carotid artery: No significant atherosclerotic disease or narrowing Left internal carotid artery: Proximal atherosclerotic disease with approximately 10% stenosis per N ASCET criteria Left external carotid artery: No significant atherosclerotic disease or narrowing Right cervical vertebral artery: No significant atherosclerotic disease or narrowing Left cervical vertebral artery: No significant atherosclerotic disease or narrowing No cervical adenopathy. The lung apices are unremarkable. Degenerative changes in the spine. CTA HEAD: There is a stable 1.3 cm area of enhancement in the inferior left frontal lobe on image 189 at 274. There is mild nonfocal atherosclerotic disease in the bilateral cavernous portion of internal carotid arteries. Right intracranial internal carotid artery: Patent without narrowing or occlusion Right anterior cerebral artery: Patent without narrowing or occlusion Right middle cerebral artery: Patent without narrowing or occlusion There is a right posterior communicating artery. Left intracranial internal carotid artery: Patent without narrowing or occlusion Left anterior cerebral artery: Patent without narrowing or occlusion Left middle cerebral artery: Patent without narrowing or occlusion No aneurysmal dilatation is seen in the anterior circulation. Right vertebral artery: Patent without narrowing or occlusion. Left vertebral artery: Patent without narrowing or occlusion. Moderate stable atherosclerotic disease just before it becomes the basilar artery. Basilar artery: Patent without narrowing or occlusion The posterior cerebral arteries and cerebellar arteries are patent without narrowing or occlusion. No aneurysmal dilatation is seen in the posterior circulation. IMPRESSION: 1. No significant CTA abnormality of the neck 2. No significant CTA abnormality of the head 3. Stable area of enhancement in the left frontal lobe may represent a meningioma. This was not appre ciated on the prior MRI, but this was performed without contrast making it less sensitive. Transcribed Date/Time: 07/10/2020 3:10 PM
== END 2020-07-06 13:51 | disposition home health service (06) | DRG 637 ==
LOC: ERS 20:55 → 2SE 22:48 → OBSVTOIN 07-05 21:59
PROVIDERS: ADMIT Student in an Organized Health Care Education/Training Program; ATTEND Student in an Organized Health Care Education/Training Program
DX: E11.65 Type 2 diabetes mellitus with hyperglycemia (principal); G93.41 Metabolic encephalopathy; E87.2 Acidosis; E87.1 Hypo-osmolality and hyponatremia; N17.9 Acute kidney failure, unspecified; R47.81 Slurred speech; Z96.652 Presence of left artificial knee joint; I25.10 Atherosclerotic heart disease of native coronary artery without angina pectoris; K21.9 Gastro-esophageal reflux disease without esophagitis; N40.0 Benign prostatic hyperplasia without lower urinary tract symptoms; E89.0 Postprocedural hypothyroidism; N18.30 Chronic kidney disease, stage 3 unspecified; E11.22 Type 2 diabetes mellitus with diabetic chronic kidney disease; I12.9 Hypertensive chronic kidney disease with stage 1 through stage 4 chronic kidney disease, or unspecified chronic kidney disease; R47.1 Dysarthria and anarthria; F03.90 Unspecified dementia, unspecified severity, without behavioral disturbance, psychotic disturbance, mood disturbance, and anxiety; D64.9 Anemia, unspecified; Z92.3 Personal history of irradiation; Z85.820 Personal history of malignant melanoma of skin; Z98.42 Cataract extraction status, left eye; Z98.41 Cataract extraction status, right eye; Z98.890 Other specified postprocedural states; Z79.899 Other long term (current) drug therapy; Z79.890 Hormone replacement therapy; Z79.84 Long term (current) use of oral hypoglycemic drugs; Z79.01 Long term (current) use of anticoagulants; Z86.73 Personal history of transient ischemic attack (TIA), and cerebral infarction without residual deficits; Z90.49 Acquired absence of other specified parts of digestive tract; Z20.828 Contact with and (suspected) exposure to other viral communicable diseases
CPT/HCPCS: 36415; 36416; 70450; 70496; 70498; 70551; 71045; 80048; 80053; 80061; 80306; 80307; 81003; 82140; 82550; 82607; 82746; 83036; 83605; 83735; 84443; 84484; 85025; 85027; 85610; 85730; 87040; 87635; 93005; 93306; 96365; 96367; 96374; 96375; C9113; G0378; J1815; J2405; J2543; J3370; J3490; J7030; Q9967; U0003

== ENCOUNTER 2020-12-26 15:28 | Emergency (ER) | payer MEDICARE ==
[2020-12-26 15:59] LABS: #Basophils 0.1 thou/uL (0.0-0.2); #Eosinphils 1.9 thou/uL (0.0-0.7); #Lymphocytes 2.1 thou/uL (1.20-3.40); #Monocytes 0.7 thou/uL (0.11-0.59); %Basophils 0.7 % (0.0-1.0); %Eosinophils 17.7 % (0.0-10.0); %Lymphocytes 19.4 % (21.0-51.0); %Monocytes 6.8 % (0.0-10.0); %Neutrophils 55.4 % (42.0-75.0); Hemoglobin 13.9 g/dL (14.0-18.0); Mean Corpuscular HGB CONC 33.9 g/dL (32.0-36.0); Mean Corpuscular Hemoglobin 30.7 pg (27.0-31.0); Mean Corpuscular Volume 90.5 fL (78.0-98.0); Mean Platelet Volume 8.4 fL (7.4-10.4); Platelet Count 269 thou/uL (130-400); RBC Distribution Width 11.9 % (11.5-14.5); Red Blood Cell (RBC) Count 4.54 mill/uL (4.70-6.10); White Blood Cell (WBC) Count 10.7 thou/uL (4.8-10.8)
[2020-12-26 16:11] LABS: INR-International Normal Ratio 1.1; Prothrombin Time 13.9 sec (12.0-14.7)
[2020-12-26 16:28] LABS: ALT (SGPT) 30 U/L (8-55); AST (SGOT) 21 U/L (5-34); Albumin 3.8 g/dL (3.4-4.8); Alkaline Phosphatase 55 U/L (40-110); Anion Gap 13 mmol/L (10-20); BUN (Urea Nitrogen) 30 mg/dL (8.4-25.7); Bilirubin, Total 0.4 mg/dL (0.2-1.2); Calc. Creatinine Clearance 0 mL/min (70-130); Calcium 9.4 mg/dL (7.8-10.44); Carbon Dioxide 27 mmol/L (23-31); Chloride 102 mmol/L (98-107); Globulin 3.4 g/dL (2.4-3.5); Glucose 138 mg/dL (83-110); Potassium 4.3 mmol/L (3.5-5.1); Protein, Total 7.2 g/dL (5.8-8.1); Sodium 138 mmol/L (136-145)
== END 2020-12-26 19:15 | disposition home or self-care (01) ==
LOC: ERS 15:28
DX: G45.9 Transient cerebral ischemic attack, unspecified (principal); E11.9 Type 2 diabetes mellitus without complications; I10 Essential (primary) hypertension; E03.9 Hypothyroidism, unspecified; Z86.73 Personal history of transient ischemic attack (TIA), and cerebral infarction without residual deficits; Z85.820 Personal history of malignant melanoma of skin
CPT/HCPCS: 36415; 70450; 70496; 70498; 80053; 85025; 85610; 93005; Q9967

== ENCOUNTER 2020-12-30 16:05 | Inpatient (IN) | payer MEDICARE ==
[2020-12-30] MEDS ORDERED: Nitroglycerin 2% Ointment 1 INCH/1 GM Packet ONE (17:11)
[2020-12-30] MEDS ORDERED: Labetalol HCl 100 MG/20 ML VIAL ONE (17:11)
[2020-12-30 18:31] LABS: #Basophils 0.1 thou/uL (0.0-0.2); #Eosinphils 0.9 thou/uL (0.0-0.7); #Lymphocytes 2.1 thou/uL (1.20-3.40); #Monocytes 0.6 thou/uL (0.11-0.59); #Neutrophils 7.7 thou/uL (1.40-6.50); %Basophils 0.9 % (0.0-1.0); %Eosinophils 7.7 % (0.0-10.0); %Lymphocytes 18.4 % (21.0-51.0); %Monocytes 5.7 % (0.0-10.0); %Neutrophils 67.3 % (42.0-75.0); Hemoglobin 14.6 g/dL (14.0-18.0); Mean Corpuscular HGB CONC 34.6 g/dL (32.0-36.0); Mean Corpuscular Hemoglobin 31.2 pg (27.0-31.0); Mean Corpuscular Volume 90.2 fL (78.0-98.0); Mean Platelet Volume 8.6 fL (7.4-10.4); Platelet Count 276 thou/uL (130-400); RBC Distribution Width 11.8 % (11.5-14.5); Red Blood Cell (RBC) Count 4.69 mill/uL (4.70-6.10); White Blood Cell (WBC) Count 11.4 thou/uL (4.8-10.8)
[2020-12-30 18:56] LABS: ALT (SGPT) 32 U/L (8-55); AST (SGOT) 25 U/L (5-34); Alkaline Phosphatase 56 U/L (40-110); Anion Gap 15 mmol/L (10-20); BUN (Urea Nitrogen) 31 mg/dL (8.4-25.7); Bilirubin, Total 0.5 mg/dL (0.2-1.2); Calc. Creatinine Clearance 0 mL/min (70-130); Calcium 9.5 mg/dL (7.8-10.44); Carbon Dioxide 25 mmol/L (23-31); Chloride 102 mmol/L (98-107); Globulin 3.7 g/dL (2.4-3.5); Glucose 107 mg/dL (83-110); Potassium 4.6 mmol/L (3.5-5.1); Protein, Total 7.7 g/dL (5.8-8.1); Sodium 137 mmol/L (136-145); Troponin I 0.014 ng/mL (< 0.028)
[2020-12-30 19:37] LABS: Bacteria/HPF None Seen HPF (None Seen); Bilirubin Negative (Negative); Blood, Urine Negative (Negative); Clarity Clear (Clear); Glucose, Urine (Dipstick) Normal (Negative); Ketone, Urine Negative (Negative); Leukocyte Negative Leu/uL (Negative); Nitrite Negative (Negative); Protein, Urine (Dipstick) 30 mg/dL (Neg-Trace); RBC/HPF 0-3 HPF (0-3); Specific Gravity, Urine 1.011 (1.002-1.036); Squamous Epithelial None Seen HPF (0-3); Urobilinogen Normal mg/dL (Less than 2); WBC/HPF 0-3 HPF (0-3); pH, Urine 6.5 (5.0-9.0)
[2020-12-30] MEDS ORDERED: Aspirin 325 MG TAB ONE (21:07)
[2020-12-30] MEDS ORDERED: Ondansetron PF 4 MG/2 ML Vial IVP PRN (21:42)
[2020-12-30] MEDS ORDERED: Acetaminophen 325 MG TAB PO PRN ×2 (21:42)
[2020-12-30] MEDS ORDERED: Communication Order-Pharmacy FS ONE (21:42)
[2020-12-30] MEDS ORDERED: Ondansetron ODT 4 MG TAB PO PRN (21:42)
[2020-12-30] MEDS ORDERED: Labetalol HCl 100 MG/20 ML VIAL SLOW IVP PRN (21:42)
[2020-12-30] MEDS ORDERED: hydrALAZINE 20 MG/ML VIAL SLOW IVP PRN (21:42)
[2020-12-30] MEDS ORDERED: niCARdipine 25 MG in Sodium Chloride 0.9% 250 ML 250 ML IVPB PRN (21:42)
[2020-12-30 22:53] VITALS: BMI 30.2
[2020-12-31 04:43] LABS: #Basophils 0.1 thou/uL (0.0-0.2); #Lymphocytes 3.1 thou/uL (1.20-3.40); #Monocytes 0.8 thou/uL (0.11-0.59); #Neutrophils 4.4 thou/uL (1.40-6.50); %Basophils 0.6 % (0.0-1.0); %Lymphocytes 33.1 % (21.0-51.0); %Monocytes 8.8 % (0.0-10.0); %Neutrophils 46.6 % (42.0-75.0); Hemoglobin 13.1 g/dL (14.0-18.0); Mean Corpuscular HGB CONC 33.2 g/dL (32.0-36.0); Mean Corpuscular Volume 90.6 fL (78.0-98.0); Mean Platelet Volume 8.5 fL (7.4-10.4); Platelet Count 261 thou/uL (130-400); RBC Distribution Width 11.8 % (11.5-14.5); Red Blood Cell (RBC) Count 4.36 mill/uL (4.70-6.10); White Blood Cell (WBC) Count 9.4 thou/uL (4.8-10.8)
[2020-12-31 05:06] LABS: Anion Gap 11 mmol/L (10-20); BUN (Urea Nitrogen) 28 mg/dL (8.4-25.7); Calc. Creatinine Clearance 48 mL/min (70-130); Calcium 8.9 mg/dL (7.8-10.44); Carbon Dioxide 27 mmol/L (23-31); Cardiac Risk 3.3 (Less than 4.5); Chloride 103 mmol/L (98-107); Cholesterol 107 mg/dl (< 200 Desired); Glucose 137 mg/dL (83-110); HDL Cholesterol 32 mg/dL (>60 Neg Risk); LDL Cholesterol, Calculated 55 mg/dL; Potassium 3.9 mmol/L (3.5-5.1); Sodium 137 mmol/L (136-145); Triglycerides 99 mg/dL (Less than 150)
[2020-12-31] MEDS: Enoxaparin Sodium 40 MG/0.4 ML SYRINGE SC SCH (08:41)
[2020-12-31] MEDS: Aspirin 81 mg Enteric Coated Tablet PO SCH (08:41)
[2020-12-31] MEDS ORDERED: Lisinopril 20 MG TAB PO SCH (13:30)
[2020-12-31] MEDS ORDERED: Non-Formulary Item 1 EACH (Insulin Lispro [Humalog Kwikpen U-100] 100 UNIT/ML Insuln.Pen) SQ SCH (15:00)
[2020-12-31] MEDS: metFORMIN 500 MG TAB PO SCH (17:26)
[2020-12-31] MEDS: HumaLOG 300 UNITS/3 ML VIAL SC SCH (17:26)
[2020-12-31] MEDS: Lisinopril 20 MG TAB PO SCH (20:32)
[2020-12-31] MEDS ORDERED: Non-Formulary Item 1 EACH (Metformin Hcl [Metformin Hcl] 1,000 MG Tablet) PO SCH (21:00)
[2020-12-31] MEDS ORDERED: Atorvastatin Calcium 10 MG TAB PO SCH (21:00)
[2020-12-31] MEDS ORDERED: Pravastatin Sodium 40 MG TAB PO SCH (21:00)
[2020-12-31] MEDS ORDERED: Atorvastatin Calcium 40 MG TAB PO SCH ×2 (21:00)
[2020-12-31] MEDS ORDERED: Melatonin 3 MG TAB PO PRN (22:14)
[2021-01-01 05:28] LABS: #Basophils 0.1 thou/uL (0.0-0.2); #Lymphocytes 2.6 thou/uL (1.20-3.40); #Monocytes 0.8 thou/uL (0.11-0.59); #Neutrophils 5.5 thou/uL (1.40-6.50); %Basophils 1.2 % (0.0-1.0); %Eosinophils 10.5 % (0.0-10.0); %Lymphocytes 26.1 % (21.0-51.0); %Monocytes 7.5 % (0.0-10.0); %Neutrophils 54.8 % (42.0-75.0); Hemoglobin 14.3 g/dL (14.0-18.0); Mean Corpuscular HGB CONC 33.6 g/dL (32.0-36.0); Mean Corpuscular Hemoglobin 30.4 pg (27.0-31.0); Mean Corpuscular Volume 90.4 fL (78.0-98.0); Mean Platelet Volume 8.3 fL (7.4-10.4); Platelet Count 286 thou/uL (130-400); RBC Distribution Width 11.8 % (11.5-14.5); Red Blood Cell (RBC) Count 4.72 mill/uL (4.70-6.10)
[2021-01-01 05:34] LABS: Hemoglobin A1c 6.5 % (4.0-6.0)
[2021-01-01 05:53] LABS: ALT (SGPT) 30 U/L (8-55); AST (SGOT) 21 U/L (5-34); Alkaline Phosphatase 58 U/L (40-110); Anion Gap 14 mmol/L (10-20); BUN (Urea Nitrogen) 27 mg/dL (8.4-25.7); Bilirubin, Total 0.7 mg/dL (0.2-1.2); Calc. Creatinine Clearance 45 mL/min (70-130); Calcium 8.9 mg/dL (7.8-10.44); Carbon Dioxide 24 mmol/L (23-31); Chloride 104 mmol/L (98-107); Globulin 3.4 g/dL (2.4-3.5); Glucose 169 mg/dL (83-110); Potassium 3.8 mmol/L (3.5-5.1); Protein, Total 7.4 g/dL (5.8-8.1); Sodium 138 mmol/L (136-145)
[2021-01-01] MEDS: Lisinopril 20 MG TAB PO SCH (08:21)
[2021-01-01] MEDS: Aspirin 81 mg Enteric Coated Tablet PO SCH (08:22)
[2021-01-01] MEDS: Enoxaparin Sodium 40 MG/0.4 ML SYRINGE SC SCH (08:45)
[2021-01-01] MEDS: HumaLOG 300 UNITS/3 ML VIAL SC SCH ×3 (08:47→17:34)
[2021-01-01] MEDS ORDERED: Dutasteride 0.5 MG CAP PO SCH (09:00)
[2021-01-01] MEDS ORDERED: Levothyroxine 150 MCG TAB PO SCH (09:00)
[2021-01-01] MEDS ORDERED: Clopidogrel Bisulfate 75 MG TAB PO SCH (09:00)
[2021-01-01] MEDS ORDERED: Lantus 1000 UNITS/10 ML VIAL SC SCH (09:00)
[2021-01-01] MEDS: metFORMIN 500 MG TAB PO SCH ×2 (12:15→16:44)
[2021-01-01] MEDS ORDERED: PROPOFOL 20 ML ONE ×2 (14:12→14:15)
[2021-01-01] MEDS ORDERED: Lidocaine 1% PF 5 ML VIAL ONE (14:33)
[2021-01-01] MEDS ORDERED: PROPOFOL 200 MG/20 ML VIAL ONE (14:33)
[2021-01-01 16:04] VITALS: BP 154/74; TEMP 97.6
== END 2021-01-01 18:48 | disposition home or self-care (01) | DRG 65 ==
LOC: ERS 16:05 → 2SE 20:26
PROVIDERS: ADMIT Student in an Organized Health Care Education/Training Program; ATTEND Internal Medicine
PROC: B246ZZ4 Ultrasonography of Right and Left Heart, Transesophageal (ICD-10-PCS; principal; 2021-01-01)
DX: I63.9 Cerebral infarction, unspecified (principal); I16.1 Hypertensive emergency; G93.40 Encephalopathy, unspecified; Q21.1 Atrial septal defect; N17.9 Acute kidney failure, unspecified; R47.1 Dysarthria and anarthria; E11.9 Type 2 diabetes mellitus without complications; I10 Essential (primary) hypertension; E03.9 Hypothyroidism, unspecified; Z96.652 Presence of left artificial knee joint; N18.9 Chronic kidney disease, unspecified; N18.30 Chronic kidney disease, stage 3 unspecified; E78.5 Hyperlipidemia, unspecified; E11.22 Type 2 diabetes mellitus with diabetic chronic kidney disease; Z79.01 Long term (current) use of anticoagulants; Z86.73 Personal history of transient ischemic attack (TIA), and cerebral infarction without residual deficits
CPT/HCPCS: 36415; 36416; 70450; 70551; 80048; 80053; 80061; 81003; 81015; 83036; 84484; 85025; 93005; 93010; 93306; 93312; 93880; 93970; 96374; J0360; J1650; J1815; J2704